=== PATIENT | female | born 1975 | race Caucasian/White ===

== ENCOUNTER → 2020-03-28 13:37 | Outpatient (CLI) | payer BC, SELFPAY | PROVIDERS: Visit Provider Family Medicine Hospice and Palliative Medicine | DX: Z11.59 Encounter for screening for other viral diseases (principal) | CPT/HCPCS: 87635; 94799; U0003 ==

== ENCOUNTER → 2023-07-23 | Outpatient (CLI) | payer OTHER, SELFPAY ==
--- NOTE | 2023-07-23 13:57 | VDLE_ITS ---
Reason For Study: Swelling LLE RIGHT LEFT CFV is compressible, spontaneous, phasic, GSV is normal. competent and demonstrates normal CFV is compressible, with CONTINUOUS FLOW, augmentation. competent, and demonstrates normal Procedure augmentation. This is a venous duplex using B-mode, color FV is compressible, with CONTINUOUS FLOW, flow and spectral Doppler. competent and demonstrates normal Exam performed in department. augmentation. A preliminary report was called and/or faxed POP V is compressible, with CONTINUOUS FLOW, to Marta COYLE. competent and demonstrates normal augmentation. T/P Trunk is compressible. PTV is compressible. LT PerV is compressible. VL/Venous Duplex US, Unilateral Interpretation Summary Deep veins of the left lower extremity are patent and compressible segmentally. There is no evidence of left lower extremity deep vein thrombosis. The left great saphenous vein becca ears patent and compressible segmentally. Continuous flow throughout suggesting central obstruction Ordering Physician: Radha Monroe Referring Physician: Cydney Quiroz Performed By: Sade Das, ELYSIA, RVT
== END | disposition home or self-care (01) ==
LOC: CVS 13:56
PROVIDERS: PCP Nurse Practitioner Family; Referring Provider Physician Assistant; Visit Provider Physician Assistant
DX: I82.409 Acute embolism and thrombosis of unspecified deep veins of unspecified lower extremity (principal)
CPT/HCPCS: 93971

== ENCOUNTER 2023-10-08 07:03 | Day surgery (SDC) | payer OTHER, SELFPAY ==
--- OUTSIDE RECORDS SUMMARY | 2023-10-08 07:09 | XMS RPT_ITS | CCD ---
Author Name Unknown Address [id number] [place] [address] Organization [facility] Care Team Providers Care Grades 9 Thru 12 Visiting Teacher Name Role Phone FELICIANO MCMAHAN BALER OPERATOR Admitting Unavailab le HOFSTETTER, FELICIANO BALER OPERATOR Primary Care Unavailab le HOFSTETTER, FELICIANO BALER OPERATOR Consulting Unavailab le HOFSTETTER, FELICIANO BALER OPERATOR Attending Unavailab le PROVIDER, UNKNOWN Consulting Unavailable PROVIDER, UNKNOWN Consulting Unavailable LETTYFSTETTER, FELICIANO BALER OPERATOR Admitting Unavailab le HOFSTETTER, FELICIANO BALER OPERATOR Primary Care Unavailab le HOFSTETTER, FELICIANO BALER OPERATOR Consulting Unavailab le HOFSTETTER, FELICIANO BALER OPERATOR Attending Unavailab le PROVIDER, UNKNOWN Consulting Unavailable PROVIDER, UNKNOWN Consulting Unavailable LETTYFSTETTER, FELICIANO BALER OPERATOR Admitting Unavailab le HOFSTETTER, FELICIANO BALER OPERATOR Primary Care Unavailab le HOFSTETTER, FELICIANO BALER OPERATOR Consulting Unavailab le HOFSTETTER, FELICIANO BALER OPERATOR Attending Unavailab le PROVIDER, UNKNOWN Consulting Unavailable PROVIDER, UNKNOWN Consulting Unavailable HOFSTETTER [employer]CFELICIANO Unavailable Elva SUE MD Unavailable [phone] VASCULAR SURGEON, GENERAL Unavailable Antonina HUDDLESTON MD, FELIZ Unavailable Angie Washburn Unavailable Unavailable VICTOR MANUEL KC, RAJWINDER Harding Unavailable JAMAL RAGLAND Unavailable Unavailable JOSEMANUEL HUDDLESTON Unavailable Unavailable FLAQUITO BAILEY-MARNI OWENS Unavailable Gerardo HUDDLESTON MD Unavailable AMELIA FU Unavailable Unavailable César, Isabel F Unavailable Unavailable NATE MCALLISTER Unavailable Unavailable Deven Jovita Unavailable Unavailable Katelin REYES, Alejandra Unavailable Unavailable Emma Westbrook Unavailable Unavailable BENJY GUAMAN Unavailable Unavailable Unavailable Unavailable ERLINDA HALL MD Unavailable Medications Current Medications Medication Drug Class(es) Dates Sig (Normalized) Sig (Original) apixaban 5 mg oral tablet (2 sources) Factor Xa Inhibitor Start: 08-06-2023 apixaban 5 mg tablet ; 1 (one) Tablet two times daily for 30 days Quantity: 60 {Tablet} Refills: 5 Ordered: 06-Aug-2023 JANEEN MCMAHAN Start: 06-Aug-2023 omeprazole 40 mg delayed release oral capsule (2 sources) Proton Pump Inhibitor Start: 06-04-2023 omeprazole 40 mg capsule,delayed release ; 1 (one) capsule daily for 30 days Quantity: 30 {Capsule} Refills: 3 Ordered: 02-Jul-2023 SERGIO Resendez Start: 04-Jun-2023 polymyxin b 57512 unt/ml / trimethoprim 1 mg/ml ophthalmic solution (1 source) Dihydrofolate Reductase Inhibitor Antibacterial, Polymyxin-class Antibacterial Start: 09-19-2023 take 1 mg into the eye(s) every three hours polymyxin B sulfate 10,000 unit-trimethopri m 1 mg/mL eye drops ; 1 (one) drop every 3 hours as directed for 7 days Quantity: 10 {Milliliter} Refills: 0 Ordered: 19-Sep-2023 MD ERLINDA HALL Start: 19-Sep-2023 Comments: Solution Completed/Discontinued Medications Medication Drug Class(es) Dates Sig (Normalized) Sig (Original) azithromycin 250 mg oral tablet (2 sources) Macrolide Antimicrobial Start: 10-23-2013 End: 10-28-2013 AZITHROMYCIN, 250MG (Oral Tablet) ; 2 x 1 then 1 x 4 Tablet daily for 5 days Quantity: 6 {Tablet} Refills: 0 Ordered: 28-Jan-2014 MD RAJWINDER RUSH Start: 23-Oct-2013 End: 28-Oct-2013 Status: Inactive Comments: take two tablets day one and then one tablet daily for 4 days Problems Active Problems Problem Classification Problem Date Documented Da te Episodic/Chronic Acute and chronic tonsillitis (2 sources) Tonsillitis; Translations: [Acute tonsillitis, unspecified] 10-24-2010 Episodic Acute bronchitis (4 sources) Acute bronchitis 07-09-2023 Episodic Administrative/social admission (6 sources) Patient encounter status; Translations: [Counseling, unspecified] 07-09-2023 Episodic Diabetes mellitus without complication (7 sources) Impaired fasting glucose; Translations: [Hyperglycemia] Onset: 3 07-09-2023 Episodic Diseases of white blood cells (9 sources) Lymphocytopenia; Translations: [Lymphocytopenia] Onset: 3 06-04-2023 Chronic Esophageal disorders (4 sources) Gastroesophageal reflux disease without esophagitis; Translations: [Gastro-esophageal reflux disease without esophagitis] 07-09-2023 Chronic Gastrointestinal hemorrhage (4 sources) Hemorrhage of rectum and anus 08-28-2013 Episodic Immunizations and screening for infectious disease (8 sources) Needs influenza immunization; Translations: [Encounter for immunization] 07-09-2023 Episodic Inflammation; infection of eye (except that caused by tuberculosis or sexually transmitteddisease) (2 sources) Acute infectious conjunctivitis; Translations: [Unspecified acute conjunctivitis, unspecified eye] 09-19-2023 Episodic Malaise and fatigue (4 sources) Fatigue; Translations: [Other fatigue] 07-09-2023 Episodic Nonmalignant breast conditions (4 sources) Mastodynia; Translations: [Mastodynia] 07-09-2023 Episodic Nonspecific chest pain (8 sources) Chest pain at rest; Translations: [Chest pain, unspecified] 06-04-2023 Episodic Nutritional deficiencies (9 sources) Vitamin D deficiency, unspecified; Translations: [Vitamin D deficiency] Onset: 3 06-04-2023 Chronic Other connective tissue disease (4 sources) Swelling of left lower limb; Translations: [Other specified soft tissue disorders] 07-09-2023 Episodic Other screening for suspected conditions (not mental disorders or infectious disease) (20 sources) Encounter for screening for lipoid disorders; Translations: [Patient encounter status] Onset: 3 Episodic Other upper respiratory infections (6 sources) Acute upper respiratory infection; Translations: [Acute upper respiratory infection, unspecified] 07-09-2023 Episodic Past or Other Problems Problem Classification Problem Date Documented Da te Episodic/Chronic Unclassified (2 sources) Follow up Tests results - Note for Follow up to discuss laboratory test results : Patient had stress test 06/19/2023 07-09-2023 Unclassified (2 sources) [ADDITIONAL REASON] DVT - Note for DVT : Patient found out 07/02/23 has DVT upper thigh area L leg 07-09-2023 Unclassified (2 sources) Leg pain - The leg pain has been occurring for 2 days. The course has been worsening. The leg pain is described as a dull aching (walking in upper leg there is a pain-pressure.). The leg pain involves the left leg. The leg pain is described as being located in the down the entire leg (swelling down the entire leg, worse from knee up.). There has been associated swelling in the leg. The pain is relieved by anti-inflammatory medication (and also used aspirin.). Note for Leg pain : Not going at night at all. Several years ago had a blood clot in a calve. 07-02-2023 Unclassified (2 sources) !Patient notification of lab results - JANEEN Helms. The test(s) that you had done were/was a heart stress test. The results of your testing were normal . You should call our office if you have any questions. Please follow up as scheduled. 06-19-2023 Unclassified (2 sources) !Patient notification of lab results - JANEEN Helms. The test(s) that you had done were/was a cologuard. The results of your testing were normal . You should call our office if you have any questions. Please follow up as scheduled. 06-16-2023 Unclassified (2 sources) Immunization - Immunizations discussed with patient/ parent: yes. Influenza immunization was given. An immunization information sheet was provided. 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 Pt has labs done last week. 06-09-2023 Unclassified (2 sources) !Patient notification of lab results - JANEEN Helms. The test(s) that you had done were/was blood work. The results of your testing were normal . You should call our office if you have any questions. Please follow up as scheduled. Note for !Patient notification of lab results : Vitamin D was very high at 91. Over 100 is considered toxic- consider a multivitamin with vitamin B and iron for supplementing for energy. Thanks! 06-03-2022 Unclassified (2 sources) Physical examination - The patient is here for a work ([facility]) physical. The patinet denies tobacco use.Her last menstrual period date was 05/15/2022. 05-31-2022 Unclassified (2 sources) OSHA N95 work questionaire - Brought a work questionnaire that has boxes marked. Would like to talk through with you.: Pt has done this screening the last -3 years. She feels that since than her nose feels swollen on the inside all the time. SOB is happening quicker in N95sm than it has since wearing them. Mask gets hotter quicker when on face 04-11-2022 Unclassified (2 sources) Skin lesion - Note for Skin lesion : Pt. has two lesions on her stomach that started 1 month ago. The lesions started small but have grown in size with a hard area in the center. 02-28-2022 Unclassified (2 sources) !Patient notification of lab results - Dr. Sue. The test(s) that you had done were/was blood work (Your thyroid was normal. The lymphocyte percentage was very slightly low. These are cells that help fight viral infections. They were not so low that I am concerned that you will have a problem with infection, but the count should be repeated in 6 months to be certain that it is stable.). You should call our office to schedule an appointment for additional testing and if you have any questions. 12-17-2021 Unclassified (2 sources) Chest pain - The onset of the chest pain has been acute and has been occurring in an intermittent pattern for minutes (15-20). The chest pain is described as being located in the left chest. There has been no associated dyspnea. Note for Chest pain : Pt felt some mild chest pain yesterday. She had just finished shopping at the grocery store when it started. She sat and took some deep breaths and it went away. She did have some tingling in her left arm from her elbow to her hand, but she has that feeling occasionally. She has not had any more symptoms. Thinks it might be stress related. 12-12-2021 Unclassified (1 source) Bee sting - pt was stung by a bee one week ago, has tried cream, salve, and baking soda paste. under the sting feels hard to the touch per pt and feels like the firmness under the skin is spreading 04-13-2021 Unclassified (1 source) [ADDITIONAL REASON] Edema - Symptoms include edema. The edema involves both lower extremities. Onset was 1 year(s) ago (Maybe longer, pt not sure.). Note for Edema : pitting edema in bilateral lower legs. 04-13-2021 Unclassified (2 sources) !Patient notification of lab results - Hall. The test(s) that you had done were/was a BMP (potassium, sodium, sugar, and kidney function) and a lipid panel (cholesterol and triglycerides). The results of your testing were normal . Please note that we have included copies of your results (you may use this for your wellness form). 08-29-2017 Unclassified (2 sources) cough - The cough has been occurring for 1 week. The course has been increasing. The cough is characterized as productive of mucoid sputum and productive of purulent sputum. The symptoms have been associated with chest pain and sore throat (earlier in the week), while the symptoms have not been associated with anorexia, dyspnea, fever, headache, hoarseness or runny nose. 10-23-2013 Unclassified (2 sources) !Patient notification of lab results 1 - Hall. The test(s) that you had done were/was a CBC (checks for anemia and infection), a CMP (kidneys, liver, nutrition, sugar), a lipid panel (cholesterol and triglycerides) and a TSH (thyroid). The results of your testing were normal . Please note that we have included copies of your results (get colonoscopy as scheduled). 08-30-2013 Unclassified (2 sources) Edema - Symptoms include edema. The edema involves both lower extremities. Onset was 8 month(s) ago. Note for Edema : Carbon dioxide issue in home in October.. 08-20-2013 Unclassified (2 sources) [ADDITIONAL REASON] Change in a mole - Note for Change in a mole : Check several moles. 08-20-2013 Unclassified (2 sources) cough - The onset of the cough has been sudden and has been occurring in a persistent pattern for 5 days. The cough is characterized as dry. The symptoms have been associated with headache and sore throat, while the symptoms have not been associated with edema. Note for cough : Pt feels congested and fatigued. 09-05-2012 Unclassified (2 sources) Sore throat - The sore throat has been occurring for 5 days. There has been associated left ear pain and nasal congestion (noticed white spots on L. side of throat). 10-24-2010 Unclassified (1 source) Eye Discharge - Note for Eye discharge : Pt scratched/poked her left eye while putting on mascara 2 days ago. The left eye is red, swollen, and crusted shut in the morning. Symptoms are getting better. 09-19-2023 Unclassified (1 source) Edema - Symptoms include edema. The edema involves both lower extremities. Onset was 1 year(s) ago (Maybe longer, pt not sure.). Note for Edema : pitting edema in bilateral lower legs. 04-13-2021 Unclassified (1 source) [ADDITIONAL REASON] Bee sting - pt was stung by a bee one week ago, has tried cream, salve, and baking soda paste. under the sting feels hard to the touch per pt and feels like the firmness under the skin is spreading 04-13-2021 Results Test Name Value Interpretation Reference Range Facil ity Vital Signs Date Time Vital Sign Value Performing Clinician Solomon jones 09-19-2023 09:31-0500 Body height 170.18 cm [facility]. 09-19-2023 09:31-0500 Body mass index (BMI) [Ratio] 34.3 kg/m2 Alejandra [facility].; [facility], [facility]. 09-19-2023 09:31-0500 Body surface area Derived from formula 2.1 m2 Alejandra Thomason RN [facility].; [facility], [facility]. 09-19-2023 09:31-0500 Body weight 99.34 kg Alejandra Thomason [facility]. 09-19-2023 09:31-0500 Diastolic blood pressure 85 mm[Hg] Alejandra Thomason [facility]; [facility] Encounters Encounter Date Encounter Type Care Provider Facility Start: 09-19-2023 End: 09-19-2023 Office outpatient visit 15 minutes FELICIANO MCMAHAN [employer] [facility] Start: 08-06-2023 End: 08-06-2023 Medication Refill/Order FELICIANO MCMAHAN [employer] [facility] Start: 07-09-2023 End: 07-09-2023 Office outpatient visit 15 minutes FELICIANO MCMAHAN [employer] [facility] Start: 07-03-2023 End: 07-03-2023 Historical Summary FELICIANO MCMAHAN [employer] [facility] Start: 07-02-2023 End: 07-02-2023 Medication Refill/Order FELICIAON MCMAHAN [employer] [facility] Start: 07-02-2023 End: 07-02-2023 Office outpatient visit 15 minutes FELICIANO MCMAHAN [employer] [facility] Start: 06-19-2023 End: 06-19-2023 Follow-up encounter FELICIANO MCMAHAN [employer] Work Phone: [facility] Start: 06-19-2023 End: 06-19-2023 ambulatory FELICIANO MCMAHAN [facility] Start: 06-16-2023 End: 06-16-2023 Follow-up encounter FELICIANO HOFSTETTER [employer] [facility] Start: 06-04-2023 End: 06-04-2023 Patient encounter procedure FELICIANO MCMAHAN [employer] [facility]; [facility] Start: 06-04-2023 End: 06-04-2023 Periodic preventive med est patient 40-64yrs FELICIANO DAUGHERTYJENNIFER [employer] Work Phone: [facility]. Start: 05-30-2023 End: 05-30-2023 ambulatory FELICIANO BALER OPERATOR [facility] Start: 05-30-2023 End: 05-30-2023 Lab Only FELICIANO HANDLEYAARON [employer] Work Phone: [facility]. Start: 04-04-2023 End: 04-04-2023 ambulatory FELICIANO BALER OPERATOR [facility] Start: 03-19-2023 End: 03-19-2023 Procedure Order FELICIANO MCMAHAN [employer] [facility] Start: 08-19-2022 End: 08-19-2022 Historical Summary FELICIANO LETTYGUALBERTOJENNIFER [employer]C Work Phone: [facility] Start: 06-03-2022 End: 06-03-2022 Follow-up encounter FELICIANO MCMAHAN [employer] Work Phone: [facility] [employer] Start: 05-30-2022 End: 05-30-2022 Lab Only FELICIANO MCMAHAN [employer] Work Phone: [facility] Start: 05-30-2022 End: 05-30-2022 Patient encounter procedure FELICIANO MCMAHAN [employer] Work Phone: [facility]; [facility] [employer] Start: 05-30-2022 End: 05-30-2022 Periodic preventive med est patient 40-64yrs FELICIANO MCMAHAN [employer] Work Phone: [facility]. Start: 04-11-2022 End: 04-11-2022 Office outpatient visit 15 minutes FELICIANO MCMAHAN [employer] Work Phone: [facility] [employer] Start: 02-28-2022 End: 02-28-2022 Office outpatient visit 15 minutes FELICIANO HANDLEYER [employer] Work Phone: [facility] [employer] Start: 12-14-2021 End: 12-14-2021 Patient encounter procedure EFLICIANO HANDLEYER [employer] Work Phone: [facility] [employer] Start: 12-12-2021 End: 12-12-2021 Office outpatient visit 15 minutes FELICIANO HANDLEYER [employer] Work Phone: [facility] Start: 04-13-2021 End: 04-13-2021 Office outpatient visit 15 minutes FELICIANO MCMAHAN [employer] Work Phone: [facility] [employer] Start: 08-17-2019 End: 08-17-2019 Historical Summary FELICIANO HANDLEYER [employer] [facility] Start: 08-20-2018 End: 08-20-2018 Lab Only FELICIANO HANDLEYER [employer] Work Phone: [facility] [employer] [facility] [employer] Start: 09-23-2017 End: 09-30-2017 Office outpatient visit 15 minutes FELICIANO HANDLEYER [employer] [facility]. Start: 08-29-2017 End: 08-29-2017 Results Review FELICIANO MCMAHAN [employer] [facility]. Start: 08-29-2017 End: 08-29-2017 Lab Only FELICIANO MCMAHAN [employer] Work Phone: [facility]. Start: 12-30-2014 End: 12-30-2014 Results Review FELICIANO MCMAHAN [employer] Work Phone: [facility]. Start: 12-30-2014 End: 12-30-2014 Historical Summary FELICIANO MCMAHAN [employer] Work Phone: [facility]. Start: 10-23-2013 End: 10-23-2013 Patient encounter procedure FELICIANO MCMAHAN [employer] [facility]. Start: 08-30-2013 End: 08-30-2013 Nutrition therapy FELICIANO MCMAHAN [employer] Work Phone: [facility]. Start: 08-28-2013 End: 08-28-2013 Lab Only FELICIANO MCMAHAN [employer] Work Phone: [facility]. Start: 08-20-2013 End: 08-20-2013 Historical Summary FELICIANO MCMAHAN [employer] Work Phone: [facility]. Start: 08-20-2013 End: 08-20-2013 Patient encounter procedure FELICIANO MCMAHAN [employer] Work Phone: [facility]. Start: 09-05-2012 End: 09-05-2012 Patient encounter procedure FELICIANO MCMAHAN [employer] [facility] Start: 10-24-2010 End: 10-24-2010 Patient encounter procedure FELICIANO MCMAHAN [employer] [facility] Patient encounter procedure FELICIANO MCMAHAN [employer]C Work Phone: [facility]; [facility] Procedures Date Procedure Procedure Detail Performing Clinician Start: 09-19-2023 End: 09-19-2023 Dischrg meds reconciled w/current med list ERLINDA HALL MD Work Phone: Start: 07-09-2023 End: 07-09-2023 Dischrg meds reconciled w/current med list FELICIANO MCMAHAN [employer] Work Phone: Start: 07-09-2023 End: 07-09-2023 No Known Past Surgical History FELICIANO MCMAHAN [employer] Work Phone: Start: 07-03-2023 End: 07-03-2023 Dup-scan xtr veins unilateral/limited study MARNI HUDDLESTON [employer]- Work Phone: Plan of Treatment Date Care Activity Detail Author Start: 05-30-2022 Hemoglobin glycosyla selvin a1c HGB A1C (63752) Start: 30-May-2022 11:55 Request [facility] [employer] [facility]; [facility] Start: 04-13-2021 Patient Education [facility]; [facility] Start: 10-23-2013 Patient Education BRONCHITIS, ACUTE Indication: BRONCHITIS, ACUTE Start: 23-Oct-2013 Instruction Type: Patient Education [employer] [facility]; [employer] [facility] Immunizations Immunization Date Immunization Notes Care Provider Fa veronica 06-04-2023 influenza virus vaccine, unspecified formulation FELICIANO SAENZSHAUN [employer] Work Phone: [facility]; [facility] Payers Date Payer Category Payer Unknown [id number] 1975 Unknown [id number] 1975 Unknown [id number] Private Health Insurance [id number] Unknown [facility] Social [facility] Date Type Detail Facility Alcohol Use: Alcohol Use: ; N o Alcohol Use. [facility] Current Work/Study Status: Bernarda eckert Work/Study Status: ; Full-time. [facility] Most Recent Primary Occupation Most Recent Primary Occupation [facility]; [facility] Tobacco use: Tobacco use: ; N ever smoker. [facility]. Female [facility].; [facility]. Work Phone: Full-time [facility] [facility].; [facility]. Work Phone: Never smoked tobacco [facility].; [facility] Work Phone: Summary Purpose Family History Father Status:Active Comments:In good health. Born [birth year] DM; mini stroke in 70s. Mother Status:Active Comments:In good health. Born 1951 HTN; back issues Sister (s) Status:Active Comments:2. In g ood health. Father Status:Active Comments:In good health. Born [birth year] DM; mini stroke in 70s. Mother Status:Active Comments:In good health. Born 1952 HTN; back issues Sister (s) Status:Active Comments:2. In g ood health. Advance Directives No Advanced Directives Records FoundNo Advanced Directives Records Found Additional Source Comments INFORMATION SOURCE (unrecogn ized section and content) DATE CREATED AUTHOR AUTHOR'S TONYA NELSON 06/20/2023 [facility] FOR RECORDS PERTAINING TO PATIENTS WHO ARE OR HAVE BEEN ENROLLED IN A CHEMICAL DEPENDENCY/SUBSTANCEABUSE PROGRAM, SOME INFORMATION MAY BE OMITTED. This clinical summary was aggregated from multiple sources. Caution should be exercised in using it in the provision of clinical care. This summary normalizes information from multiple sources, and as a consequence, information in this document may materially change the coding, format and clinical context of patient data. In addition, data may be omitted in some cases. CLINICAL DECISIONS SHOULD BE BASED ON THE PRIMARY CLINICAL RECORDS. [employer] provides no warranty or guarantee of the accuracy or completeness of information in this document.
[2023-10-08 07:20] LABS: Absolute Lymphocyte Count 1.47 X10^3/uL (0.83-4.51); Absolute Neutrophil Count 4.9 X10^3/uL (2.0-7.7); Basophil# 0.05 X10^3/uL; Basophil% 0.7 % (0-1); Eosinophil# 0.15 X10^3/uL; Eosinophils% 2.1 % (0-5); Hematocrit 34.7 % (37-47); Hemoglobin 10.8 g/dL (12.0-15.0); Lymphocyte # 1.47 X10^3/ul (0.83-4.51); Lymphocyte % 20.7 % (19-41); Mean Corp Hgb Conc 31.1 g/dL (32-36); Mean Corpuscular Hgb 26.4 pg (27.0-32.0); Mean Corpuscular Volume 84.8 fL (81-99); NRBC Flagged by Analyzer 0 % (0-5); Neutrophil # 4.92 X10^3/uL (2.7-7.7); Neutrophil % 69.2 % (47-70); Platelet Count 237 K/mm3 (150-450); RBC Distribution Width SD 46.2 fl (35.1-43.9); Red Blood Count 4.09 M/mm3 (4.2-5.4); White Blood Count 7.1 K/mm3 (4.4-11.0)
[2023-10-08 07:27] VITALS: BMI 34.1
[2023-10-08 07:47] LABS: Internal QC Validated? YES +Cl - CLEAR BKGD; Pregnancy, Serum, hCG Quali. NEGATIVE Negative
[2023-10-08 07:53] LABS: Anion Gap 2 (5-15); BUN 19 mg/dL (7-18); Chloride 108 mmol/L (98-107); EST Glomerular Filtration Rate 70 mL/min (>60); Est Glom Filt Rate - Afr Amer 85 mL/min (>60); Estimated Creatinine Clearance 91.33 ml/min; Glucose 100 mg/dL (74-106); Potassium 4.1 mmol/L (3.5-5.1); Sodium Level 137 mmol/L (136-145)
--- NOTE | 2023-10-08 07:59 | PCM.HP.STD ---
HPI - General HPI Narrative RORY PA, is a 48 F who presents with prior unprovoked DVT and chronic edema with abnormal venous flow suggesting more proximal obstruction. Left leg edema continues to vary, slightly worse over past week or so. [facility]LY [facility] Medical History Fatigue Gastroesophageal reflux Hx of deep venous thrombosis (~2022) Hx of edema Intermittent chest pain Home Medications apixaban 5 mg tablet 5 mg PO BID 07/15/23 [History Last Taken 10/06/23] cholecalciferol (vitamin D3) 50 mcg (2,000 unit) tablet 50 mcg PO DAILY 07/15/23 [History Last Taken Unknown] omeprazole 40 mg capsule,delayed release 40 mg PO DAILY 07/15/23 [History Last Taken Unknown] turmeric 100 mg-yared 150 mg-olive 50 mg-oreg 150 mg-capryl capsule cap PO 07/15/23 [History Last Taken Unknown] Allergy/AdvReac Type Severity Reaction Status Date / Time No Known Allergies Allergy Verified 08/21/23 15:22 Family History Other Asthma Breast cancer CVA (cerebral vascular accident) Cancer Diabetes Hypertension Social History Smoking Status: Never smoker alcohol intake: never ROS Constitutional Constitutional: Denies chills, fever(s), frequent falls, lethargy or weakness Eyes Eyes: Denies blind spots, change in vision or loss of vision ENT HEENT: Denies bleeding gums, hoarseness or sore throat Cardiovascular Cardiovascular: Denies abdominal pain, bluish discoloration of hand/feet, chest pain with activity, claudication, cold extremities, cyanosis, dyspnea on exertion, erythema on extremities, irregular heart rhythm, leg edema, leg ulcers, numbness in extremities or weakness in extremities Respiratory/Chest Respiratory/Chest: Denies cough, excessive phlegm production, shortness of breath at rest, shortness of breath with exertion or wheezing Gastrointestinal Gastrointestinal: Denies anorexia, change in stool character, constipation, diarrhea, melena or rectal bleeding Genitourinary Genitourinary: Denies dysuria or hematuria Musculoskeletal Musculoskeletal: Denies abnormal gait Integumentary Integumentary: Reports other Details: ; Denies erythema, non-healing lesions or wounds Neurologic Neurologic: Denies abnormal speech, focal weakness, headache(s), loss of vision, numbness, paresthesias or sensory deficit Hematologic/Lymphatic Hematologic/Lymphatic: Denies easy bleeding, easy bruising or lymphadenopathy Vital Signs Vital Signs Vital Signs: Weight Weight: 218 lb Body Mass Index (BMI) 34.1 Physical Exam Const alert, oriented x3, no apparent distress and healthy appearing General Appearance: cooperative; Negative for combative or lethargic Orientation / Consciousness: awake Exam Limitations: no limitations HEENT Head and Scalp: normocephalic and atraumatic Eyes EOMs intact bilaterally General Eye: normal appearance of both eyes Neck full ROM, no lymphadenopathy, thyroid normal and No no carotid bruits General: trachea midline; Negative for lymphadenopathy or tenderness Thyroid: thyroid normal Lymph Lymphatic: Negative for no lymphadenopathy noted Resp normal respiratory effort, no use of accessory muscles and clear to auscultation bilaterally Effort and Inspection: Negative for labored, stridor or audible wheezes Cardio regular rate, regular rhythm and no murmurs Peripheral Pulses: brachial pulses present, radial pulses present, femoral pulses present, popliteal pulses present, posterior tibial pulses present and dorsalis pedis pulses present Back/Spine Cervical Spine: cervical ROM normal Extremity full ROM, normal capillary refill and no clubbing, cyanosis or edema Skin no rashes or lesions noted and no wounds Neuro oriented x3, CN's II-XII intact bilaterally, no focal motor deficits and no sensory deficits noted Psych thought process normal, cooperative, affect normal, speech normal and activity/motor behavior normal Results Lab / Micro Data 10/08/23 07:07 10/08/23 07:07 Labs: Laboratory Results - last 24 hr 10/08/23 07:07: WBC 7.1, RBC 4.09 L, Hgb 10.8 L, Hct 34.7 L, MCV 84.8, MCH 26.4 L, MCHC 31.1 L, RDW Std Deviation 46.2 H, RDW Coeff of Familia 15.0 H, Plt Count 237, MPV 11.0, Immature Gran % (Auto) 0.300, Neut % (Auto) 69.2, Lymph % (Auto) 20.7, Mckean % (Auto) 7.0, Eos % (Auto) 2.1, Baso % (Auto) 0.7, Absolute Neuts (auto) 4.9, Absolute Lymphs (auto) 1.47, Nucleated RBC % 0, Sodium 137, Potassium 4.1, Chloride 108 H, Carbon Dioxide 27.0, Anion Gap 2 L, BUN 19 H, Creatinine 0.90, Estim Creat Clear Calc 91.33, Est GFR (MDRD) Af Amer 85, Est GFR (MDRD) Non-Af 70, BUN/Creatinine Ratio 21.0 H, Glucose 100, Calcium 9.0, Serum , Qual NEGATIVE Assessment & Plan Assessment/Plan (1) Acute deep vein thrombosis: QUALIFIERS: DVT location: lower extremity Affected thrombotic vein of extremity: femoral Laterality: left Qualified Code(s): I82.412 - Acute embolism and thrombosis of left femoral vein PLAN: -plan venogram
--- NOTE | 2023-10-08 10:09 | OP.PCM_ITS ---
Report of Operation Date of Procedure: 10/08/23 Pre-Operative Diagnosis: DVT Post-Operative Diagnosis: same, left common iliac vein compression/occlusion Surgery/Procedure Performed:: Venogram IVC IVUS IVC, bilateral common/external iliac veins angioplasty/stent left common iliac vein Description of Surgical Findings:: HPI: Patient is a 48-year-old female with unprovoked left lower extremity DVT. She has been treated with anticoagulation with resolution of her thrombus however she continues to have significant left-sided tightness and swelling. Given the persistent symptoms, the location of the thrombus in the more proximal vessels, and the unprovoked nature she is taken now for venogram to search for possible central compression. Description of procedure: Upon obtaining form consent and verification correct patient procedure site patient was taken to the [facility] where she was positioned prepped and draped in usual sterile fashion. Time was performed and conscious sedation administered Versed and fentanyl. Skin overlying the left common femoral vein was Nestabs 1% lidocaine the vessel accessed under ultrasound guidance with a micropuncture needle wire. This then exchanged for micropuncture sheath through which injection ilio caval venogram was performed revealing significant pelvic collaterals cross-filling into the contralateral side and abrupt near occlusion of the mid common iliac vein with multiple adjacent collaterals. Through the micropuncture sheath a stiff glide wire was advanced and the micropuncture sheath exchanged out for a 10 [place] Islander sheath. Next skin overlying the right common femoral vein was anesthetized 1% lidocaine and the vessel accessed under ultrasound guidance with micropuncture needle wire. This then exchanged for micropuncture sheath through which injection ilio caval venogram was performed revealing brisk contrast transit with no significant obstruction or collateral formation. Bentson wire was then advanced via the sheath and the micropuncture sheath was then exchanged out for a 10 [place] Islander sheath. Using the stiff glide and a angled quick cross catheter we were able to navigate into the channel that was maintained emptying the iliac vein into the vena cava. We are to traverse this segment and advance her wire catheter into the vena cava at which point to the wire was withdrawn hand- injection venacavogram through the catheter was performed revealing satisfactory position within the true lumen of the vena cava. Patient was then heparinized to circulate for 3 minutes after which the intravascular shunt probe was then advanced over the Glidewire and recorded pullback of the IVC, left common iliac vein, left external and vein was performed. This confirmed what appeared to be significant compression of the mid common iliac vein however is very difficult to determine if we were within compressed and partially occluded iliac vein or if we are in one of the abundant collaterals. We then withdrew the ultrasound probe advanced via the right femoral access sheath and recorded pullback of the IVC, right common iliac vein, right external venous performed. This revealed that there was no significant compression or obstruction of the right iliac vein system. This also appeared to show that the wire from the left femoral access sheath did enter the vena cava at the appropriate position to be consistent with the common iliac vein. With continued uncertainty of the nature of the conduit that we crossed into the vena cava was felt that the small caliber balloon angioplasty with sequential increase in size of balloon would help determine if we were within collateral branch or true lumen of the vessel. First a Bard noncompliant 6 x 40 balloon was advanced in position and inflated to nominal for 2 minutes then deflated withdrawn. There is no significant discomfort for the patient and repeat venography revealed what appeared to be improved lumen channel with no extravasation dissection. Next a 8 x 40 balloon was advanced into position and again inflated nominal for 2 minutes and deflated withdrawn. He had repeat venography revealed satisfactory vessel response with no extravasation or dissection. Next a 10 x 40 balloon was advanced in the position and inflated to nominal and then deflated and withdrawn. Venography confirmed satisfactory vessel response. The intravascular shunt probe was then readvanced and recorded pullback performed which showed a more clear picture that we were within the lumen of the iliac vein there was significant webbing and scar within the vein. Finally the vessel was angioplastied with a 14 x 40 angioplasty balloon inflated to nominal and then deflated and withdrawn. Intravascular shunt probe was advanced in position to obtain length required to cover. Next a Bard Venovo 16 x 100 venous stent was advanced into position with adequate coverage of the proximal compression without significant extension into the vena cava or contralateral ostia. This was then deployed and then postdilated with the 14 x 40 angioplasty balloon. Repeat venography revealed brisk contrast transit with no extravasation dissection with overall satisfactory luminal gain. Intravascular shunt probe was then advanced and recorded pullback performed which revealed there was some poor stent to wall apposition at the superior aspect so a 16 x 40 angioplasty balloon was then advanced in position and reinflated to nominal for 2 minutes then deflated withdrawn. Ultrasound reevaluation confirmed better stent expansion with good wall apposition. There is no further contralateral iliac system filling via collaterals and there is brisk contrast transit across the stented segment. Silk suture was then placed at the femoral access sites and the wires and sheath withdrawn followed by 5 minutes of manual pressure. Afterwards patient was taken recovery room for bedrest prior to discharge to home. Surgeon: Adonay Kaplan Type of Anesthesia: Local and Sedation,Conscious Estimated Blood Loss (mL): 3 Grafts/Implants Used: Bard Venovo [id number]
[2023-10-08 20:50] LABS: ACT Activated Clotting Time 223 sec (74-137)
[2023-11-07 16:26] LABS: ACT Activated Clotting Time 223 sec (74-137)
== END 2023-10-08 12:15 | disposition home or self-care (01) ==
PROVIDERS: PCP Nurse Practitioner Family; Visit Provider Surgery Trauma Surgery
DX: I82.412 Acute embolism and thrombosis of left femoral vein (principal); I82.422 Acute embolism and thrombosis of left iliac vein; I87.1 Compression of vein; Z79.01 Long term (current) use of anticoagulants
CPT/HCPCS: 36010; 36415; 37238; 37252; 37253; 75825; 76937; 80048; 84703; 85025; 85347; 99152; 99153; C1725; C1753; C1769; C1887; C1894; Q9967; C1876

== ENCOUNTER → 2023-10-15 | Outpatient (CLI) | payer OTHER, SELFPAY ==
[2023-10-15 14:34] LABS: Hemoglobin 10.5 g/dL (12.0-15.0)
--- OUTSIDE RECORDS SUMMARY | 2023-10-15 17:57 | XMS RPT_ITS | CCD ---
Author Name Unknown Address [address] [place] [address] Organization [facility] Care Team Providers Care Patient Financial Rep Name Role Phone FELICIANO MCMAHAN CEO NA Admitting Unavailab le HOFSTETTER, FELICIANO CEO NA Primary Care Unavailab le HOFSTETTER, FELICIANO CEO NA Consulting Unavailab le HOFSTETTER, FELICIANO CEO NA Attending Unavailab le PROVIDER, UNKNOWN Consulting Unavailable PROVIDER, UNKNOWN Consulting Unavailable LETTYFSTETTER, FELICIANO CEO NA Admitting Unavailab le HOFSTETTER, FELICIANO CEO NA Primary Care Unavailab le HOFSTETTER, FELICIANO CEO NA Consulting Unavailab le HOFSTETTER, FELICIANO CEO NA Attending Unavailab le PROVIDER, UNKNOWN Consulting Unavailable PROVIDER, UNKNOWN Consulting Unavailable LETTYFSTETTER, FELICIANO CEO NA Admitting Unavailab le HOFSTETTER, FELICIANO CEO NA Primary Care Unavailab le HOFSTETTER, FELICIANO CEO NA Consulting Unavailab le HOFSTETTER, FELICIANO CEO NA Attending Unavailab le PROVIDER, UNKNOWN Consulting Unavailable PROVIDER, UNKNOWN Consulting Unavailable HOFSTETTER PICKLER HELPER-CFELICIANO Unavailable [phone] Elva SUE MD Unavailable VASCULAR SURGEON, GENERAL Unavailable Antonina HUDDLESTON MD, FELIZ Unavailable Angie Washburn Unavailable Unavailable RAJWINDER RUSH MD Unavailable JAMAL RAGLAND Unavailable Unavailable JOSEMANUEL HUDDLESTON Unavailable Unavailable FLAQUITO BAILEY-MARNI OWENS Unavailable Gerardo HUDDLESTON MD Unavailable AMELIA FU Unavailable Unavailable César, Isabel F Unavailable Unavailable NATE MCALLISTER Unavailable Unavailable Jovita Carvalho Unavailable Unavailable Katelin REYES, Alejandra Unavailable Unavailable Emma Westbrook Unavailable Unavailable BENJY GUAMAN Unavailable Unavailable Unavailable Unavailable RAFAEL KC, ERLINDA [place] Unavailable Medications Current Medications Medication Drug Class(es) Dates Sig (Normalized) Sig (Original) apixaban 5 mg oral tablet (4 sources) Factor Xa Inhibitor Start: 08-06-2023 apixaban 5 mg tablet ; 1 (one) Tablet two times daily for 30 days Quantity: 60 {Tablet} Refills: 5 Ordered: 06-Aug-2023 JANEEN MCMAHAN Start: 06-Aug-2023 omeprazole 40 mg delayed release oral capsule (4 sources) Proton Pump Inhibitor Start: 06-04-2023 omeprazole 40 mg capsule,delayed release ; 1 (one) capsule daily for 30 days Quantity: 30 {Capsule} Refills: 3 Ordered: 02-Jul-2023 SERGIO Resendez Start: 04-Jun-2023 Completed/Discontinued Medications Medication Drug Class(es) Dates Sig (Normalized) Sig (Original) azithromycin 250 mg oral tablet (4 sources) Macrolide Antimicrobial Start: 10-23-2013 End: 10-28-2013 [...] Da te Episodic/Chronic Acute and chronic tonsillitis (4 sources) Tonsillitis; Translations: [Acute tonsillitis, unspecified] 10-24-2010 Episodic Acute bronchitis (8 sources) Acute bronchitis 07-09-2023 Episodic Administrative/social admission (12 sources) Patient encounter status; Translations: [Counseling, unspecified] 07-09-2023 Episodic Diabetes mellitus without complication (13 sources) Impaired fasting glucose; Translations: [Hyperglycemia] Onset: 3 07-09-2023 Episodic Diseases of white blood cells (17 sources) Lymphocytopenia; Translations: [Lymphocytopenia] Onset: 3 06-04-2023 Chronic Esophageal disorders (8 sources) Gastroesophageal reflux disease without esophagitis; Translations: [Gastro-esophageal reflux disease without esophagitis] 07-09-2023 Chronic Gastrointestinal hemorrhage (8 sources) Hemorrhage of rectum and anus 08-28-2013 Episodic Immunizations and screening for infectious disease (16 sources) Needs influenza immunization; Translations: [Encounter for immunization] 07-09-2023 Episodic Inflammation; infection of eye (except that caused by tuberculosis or sexually transmitteddisease) (6 sources) Acute infectious conjunctivitis; Translations: [Unspecified acute conjunctivitis, unspecified eye] 09-19-2023 Episodic Malaise and fatigue (8 sources) Fatigue; Translations: [Other fatigue] 07-09-2023 Episodic Nonmalignant breast conditions (8 sources) Mastodynia; Translations: [Mastodynia] 07-09-2023 Episodic Nonspecific chest pain (16 sources) Chest pain at rest; Translations: [Chest pain, unspecified] 06-04-2023 Episodic Nutritional deficiencies (17 sources) Vitamin D deficiency, unspecified; Translations: [Vitamin D deficiency] Onset: 3 06-04-2023 Chronic Other connective tissue disease (8 sources) Swelling of left lower limb; Translations: [Other specified soft tissue disorders] 07-09-2023 Episodic Other screening for suspected conditions (not mental disorders or infectious disease) (20 sources) Encounter for screening for lipoid disorders; Translations: [Patient encounter status] Onset: Episodic Other upper respiratory infections (12 sources) Acute upper respiratory infection; Translations: [Acute upper respiratory infection, unspecified] 07-09-2023 Episodic Past or Other Problems Problem Classification Problem Date Documented Da te Episodic/Chronic Unclassified (3 sources) Follow up Tests results - Note for Follow up to discuss laboratory test results : Patient had stress test 06/19/2023 07-09-2023 Unclassified (3 sources) [ADDITIONAL REASON] DVT - Note for DVT : Patient found out 07/02/23 has DVT upper thigh area L leg 07-09-2023 Unclassified (4 sources) Leg pain - The leg pain [...] blood clot in a calve. 07-02-2023 Unclassified (4 sources) !Patient notification of lab results - JANEEN Helms. The test(s) that you had done were/was a heart stress test. The results of your testing were normal . You should call our office if you have any questions. Please follow up as scheduled. 06-19-2023 Unclassified (4 sources) !Patient notification of lab results - JANEEN Helms. The test(s) that you had done were/was a cologuard. The results of your testing were normal . You should call our office if you have any questions. Please follow up as scheduled. 06-16-2023 Unclassified (3 sources) Immunization - Immunizations discussed with patient/ parent: yes. Influenza immunization was given. An immunization information sheet was provided. 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 Pt has labs done last week. 06-09-2023 Unclassified (4 sources) !Patient notification of lab results - [...] for supplementing for energy. Thanks! 06-03-2022 Unclassified (4 sources) Physical examination - The patient is here for a work ([facility]) physical. The patinet denies tobacco use.Her last menstrual period date was 05/15/2022. 05-31-2022 Unclassified (4 sources) OSHA N95 work questionaire - Brought [...] hotter quicker when on face 04-11-2022 Unclassified (4 sources) Skin lesion - Note for Skin lesion : Pt. has two lesions on her stomach that started 1 month ago. The lesions started small but have grown in size with a hard area in the center. 02-28-2022 Unclassified (4 sources) !Patient notification of lab results - [...] if you have any questions. 12-17-2021 Unclassified (4 sources) Chest pain - The onset of [...] it might be stress related. 12-12-2021 Unclassified (2 sources) Bee sting - pt was stung by a bee one week ago, has tried cream, salve, and baking soda paste. under the sting feels hard to the touch per pt and feels like the firmness under the skin is spreading 04-13-2021 Unclassified (2 sources) [ADDITIONAL REASON] Edema - Symptoms include edema. The edema involves both lower extremities. Onset was 1 year(s) ago (Maybe longer, pt not sure.). Note for Edema : pitting edema in bilateral lower legs. 04-13-2021 Unclassified (4 sources) !Patient notification of lab results - Hall. The test(s) that you had done were/was a BMP (potassium, sodium, sugar, and kidney function) and a lipid panel (cholesterol and triglycerides). The results of your testing were normal . Please note that we have included copies of your results (you may use this for your wellness form). 08-29-2017 Unclassified (4 sources) cough - The cough has been occurring for 1 week. The course has been increasing. The cough is characterized as productive of mucoid sputum and productive of purulent sputum. The symptoms have been associated with chest pain and sore throat (earlier in the week), while the symptoms have not been associated with anorexia, dyspnea, fever, headache, hoarseness or runny nose. 10-23-2013 Unclassified (4 sources) !Patient notification of lab results 1 - Hall. The test(s) that you had done were/was a CBC (checks for anemia and infection), a CMP (kidneys, liver, nutrition, sugar), a lipid panel (cholesterol and triglycerides) and a TSH (thyroid). The results of your testing were normal . Please note that we have included copies of your results (get colonoscopy as scheduled). 08-30-2013 Unclassified (4 sources) Edema - Symptoms include edema. The edema involves both lower extremities. Onset was 8 month(s) ago. Note for Edema : Carbon dioxide issue in home in October.. 08-20-2013 Unclassified (4 sources) [ADDITIONAL REASON] Change in a mole - Note for Change in a mole : Check several moles. 08-20-2013 Unclassified (4 sources) cough - The onset of the cough has been sudden and has been occurring in a persistent pattern for 5 days. The cough is characterized as dry. The symptoms have been associated with headache and sore throat, while the symptoms have not been associated with edema. Note for cough : Pt feels congested and fatigued. 09-05-2012 Unclassified (4 sources) Sore throat - The sore throat has been occurring for 5 days. There has been associated left ear pain and nasal congestion (noticed white spots on L. side of throat). 10-24-2010 Unclassified (3 sources) Eye Discharge - Note for Eye discharge : Pt scratched/poked her left eye while putting on mascara 2 days ago. The left eye is red, swollen, and crusted shut in the morning. Symptoms are getting better. 09-19-2023 Unclassified (2 sources) Edema - Symptoms include edema. The edema involves both lower extremities. Onset was 1 year(s) ago (Maybe longer, pt not sure.). Note for Edema : pitting edema in bilateral lower legs. 04-13-2021 Unclassified (2 sources) [ADDITIONAL REASON] Bee sting - pt was stung by a bee one week ago, has tried cream, salve, and baking soda paste. 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 Pt has labs done last week. 06-09-2023 Unclassified (1 source) [ADDITIONAL REASON] Immunization - Immunizations discussed with patient/ parent: yes. Influenza immunization was given. An immunization information sheet was provided. 06-09-2023 Results Test Name Value Interpretation Reference Range Facil ity Vital Signs Date Time Vital Sign Value Performing Clinician Faci lity 09-19-2023 09:31-0500 Body height 170.18 cm Alejandra Thomason RN [facility], [facility].; [facility]. 09-19-2023 09:31-0500 Body mass index (BMI) [Ratio] 34.3 kg/m2 Alejandra Thomason RN [facility]. 09-19-2023 09:31-0500 Body surface area Derived from formula 2.1 m2 Alejandra Thomason RN [facility], [facility].; [facility]. 09-19-2023 09:31-0500 Body weight 99.34 kg Alejandra Thomason RN [facility], [facility].; [facility] 09-19-2023 09:31-0500 Diastolic blood pressure 85 mm[Hg] Alejandra Thomason RN [facility] Encounters Encounter Date Encounter Type Care Provider Facility Start: 09-19-2023 End: 09-19-2023 Office outpatient visit 15 minutes FELICIANO MCMAHAN PICKLER HELPER-C Work Phone: [facility] Start: 08-06-2023 End: 08-06-2023 Medication Refill/Order FELICIANO MCMAHAN PICKLER HELPER-C Work Phone: [facility], [facility] Start: 07-09-2023 End: 07-09-2023 Office outpatient visit 15 minutes FELICIANO MCMAHAN PICKLER HELPER-C [facility] Start: 07-03-2023 End: 07-03-2023 Historical Summary FELICIANO MCMAHAN PICKLER HELPER-C [facility] Start: 07-02-2023 End: 07-02-2023 Medication Refill/Order FELICIANO MCMAHAN PICKLER HELPER-C [facility] Start: 07-02-2023 End: 07-02-2023 Office outpatient visit 15 minutes FELICIANO MCMAHAN PICKLER HELPER-C [facility] Start: 06-19-2023 End: 06-19-2023 Follow-up encounter FELICIANO MCMAHAN PICKLER HELPER-C Work Phone: [facility] Start: 06-19-2023 End: 06-19-2023 ambulatory FELICIANO MCMAHAN [facility] Start: 06-16-2023 End: 06-16-2023 Follow-up encounter FELICIANO MCMAHAN PICKLER HELPER-C Work Phone: [employer] [place] [employer] Start: 06-04-2023 End: 06-04-2023 Patient encounter procedure FELICIANO MCMAHNA PICKLER HELPER-C Work Phone: [employer]; [employer] Start: 06-04-2023 End: 06-04-2023 Periodic preventive med est patient 40-64yrs FELICIANO DAUGHERTYJENNIFER PICKLER HELPER-C Work Phone: [facility] [employer] [facility] [employer] Start: 05-30-2023 End: 05-30-2023 ambulatory FELICIANO JESSICA [facility] Start: 05-30-2023 End: 05-30-2023 Lab Only FELICIANO MCMAHAN PICKLER HELPER-C Work Phone: [employer] [place] [employer] Start: 04-04-2023 End: 04-04-2023 ambulatory FELICIANO JESSICA [facility] Start: 03-19-2023 End: 03-19-2023 Procedure Order FELICIANO MCMAHAN PICKLER HELPER-C Work Phone: [employer] [place] [employer] Start: 08-19-2022 End: 08-19-2022 Historical Summary FELICIANO MCMAHAN PICKLER HELPER-C Work Phone: [facility] [employer] Start: 06-03-2022 End: 06-03-2022 Follow-up encounter FELICIANO MCMAHAN PICKLER HELPER-C Work Phone: [employer] Start: 05-30-2022 End: 05-30-2022 Lab Only FELICIANO FLOWERCRAIGJENNIFER PICKLER HELPER-C Work Phone: [employer] [place] [employer] Start: 05-30-2022 End: 05-30-2022 Patient encounter procedure FELICIANO CRENSHAWJORDYN PICKLER HELPER-C Work Phone: [facility]; [facility] [employer] [facility] Start: 05-30-2022 End: 05-30-2022 Periodic preventive med est patient 40-64yrs FELICIANO MARJ PICKLER HELPER-C Work Phone: [facility] [employer] Start: 04-11-2022 End: 04-11-2022 Office outpatient visit 15 minutes FELICIANO MARJ PICKLER HELPER-C Work Phone: [facility] [employer] Start: 02-28-2022 End: 02-28-2022 Office outpatient visit 15 minutes FELICIANO MARJ PICKLER HELPER-C Work Phone: [facility] [employer] [facility] [employer] Start: 12-14-2021 End: 12-14-2021 Patient encounter procedure FELICIANO DAUGHERTYMEHDIER PICKLER HELPER-C Work Phone: [facility] [employer] Start: 12-12-2021 End: 12-12-2021 Office outpatient visit 15 minutes FELICIANO FLOWERCRAIGMEHDIER PICKLER HELPER-C Work Phone: [facility] [employer] [facility] [employer] Start: 04-13-2021 End: 04-13-2021 Office outpatient visit 15 minutes FELICIANO MARJ PICKLER HELPER-C Work Phone: [facility] [employer] Start: 08-17-2019 End: 08-17-2019 Historical Summary FELICIANO CRENSHAWCARIGJENNIFER PICKLER HELPER-C Work Phone: [facility] [employer] Start: 08-20-2018 End: 08-20-2018 Lab Only FELICIANO HANDLEYER PICKLER HELPER-C Work Phone: [facility] [employer] Start: 09-23-2017 End: 09-30-2017 Office outpatient visit 15 minutes FELICIANO MCMAHAN PICKLER HELPER-C Work Phone: [facility] [employer] Start: 08-29-2017 End: 08-29-2017 Results Review FELICIANO MCMAHAN PICKLER HELPER-C Work Phone: [facility] Start: 08-29-2017 End: 08-29-2017 Lab Only FELICIANO MCMAHAN PICKLER HELPER-C Work Phone: [facility] [employer] [facility] Start: 12-30-2014 End: 12-30-2014 Results Review FELICIANO MCMAHAN PICKLER HELPER-C Work Phone: [facility] Start: 12-30-2014 End: 12-30-2014 Historical Summary FELICIANO MCMAHAN PICKLER HELPER-C Work Phone: [facility] [employer] Start: 10-23-2013 End: 10-23-2013 Patient encounter procedure FELICIANO MCMAHAN PICKLER HELPER-C Work Phone: [facility] [employer] [facility] [employer] Start: 08-30-2013 End: 08-30-2013 Nutrition therapy FELICIANO MCMAHAN PICKLER HELPER-C Work Phone: [facility] [employer] Start: 08-28-2013 End: 08-28-2013 Lab Only FELICIANO MCMAHAN PICKLER HELPER-C Work Phone: [facility] [employer] Start: 08-20-2013 End: 08-20-2013 Historical Summary FELICIANO MCMAHAN PICKLER HELPER-C Work Phone: [facility] [employer] Start: 08-20-2013 End: 08-20-2013 Patient encounter procedure FELICIANO MCMAHAN PICKLER HELPER-C Work Phone: [facility] [employer] Start: 09-05-2012 End: 09-05-2012 Patient encounter procedure FELICIANO MCMAHAN PICKLER HELPER-C [facility] Start: 10-24-2010 End: 10-24-2010 Patient encounter procedure FELICIANO MCMAHAN PICKLER HELPER-C [facility] Patient encounter procedure FELICIANO MCMAHAN PICKLER HELPER-C Work Phone: [facility]; [facility] Procedures Date Procedure Procedure Detail Performing Clinician Start: 09-19-2023 End: 09-19-2023 Dischrg meds reconciled w/current med list ERLINDA HALL MD Work Phone: Start: 07-09-2023 End: 07-09-2023 Dischrg meds reconciled w/current med list FELICIANO MCMAHAN PICKLER HELPER-C Work Phone: Start: 07-09-2023 End: 07-09-2023 No Known Past Surgical History FELICIANO MCMAHAN PICKLER HELPER-C Work Phone: Start: 07-03-2023 End: 07-03-2023 Dup-scan xtr veins unilateral/limited study MARNI HUDDLESTON PICKLER HELPER-BC Work Phone: Plan of Treatment Date Care Activity Detail Author Start: 05-30-2022 Hemoglobin glycosyla selvin a1c HGB A1C (53883) Start: 30-May-2022 11:55 Request [facility] [employer] [facility] [employer]; [facility] [employer] [facility] Start: 04-13-2021 Patient Education [facility] [facility]; [facility] Start: 10-23-2013 Patient Education BRONCHITIS, ACUTE Indication: BRONCHITIS, ACUTE Start: 23-Oct-2013 Instruction Type: Patient Education [employer] [facility] Immunizations Immunization Date Immunization Notes Care Provider Dick martin 06-04-2023 influenza virus vaccine, unspecified formulation FELICIANO MCMAHAN PICKLER HELPER-C Work Phone: [facility]; [facility] Payers Date Payer Category Payer Unknown [id number] 1975 Unknown [id number] 1975 Unknown [id number] Private Health Insurance [id number] Unknown [facility] Social History Date Type Detail Facility Alcohol Use: Alcohol Use: ; N o Alcohol Use. [facility]; [facility] Current Work/Study Status: Bernarda eckert Work/Study Status: ; Full-time. [facility]; [facility] Most Recent Primary Occupation Most Recent Primary Occupation [facility]; [facility] Tobacco use: Tobacco use: ; N ever smoker. [facility] [employer] [facility]; [facility]. Female [facility] [employer] [facility] [employer] [facility] Work Phone: Full-time [facility] [employer] [facility]; [facility] Work Phone: Never smoked tobacco [facility]; [facility] [employer] [facility] Work Phone: Summary Purpose Family History Father Status:Active Comments:In good health. Born 1943 DM; mini stroke in 70s. Mother Status:Active Comments:In good health. Born 1951 HTN; back issues Sister (s) Status:Active Comments:2. In g ood health. Father Status:Active Comments:In good health. Born 1944 DM; mini stroke in 70s. Mother Status:Active Comments:In good health. Born 1951 HTN; back issues Sister (s) Status:Active Comments:2. In g ood health. Father Status:Active Comments:In good health. Born 194 DM; mini stroke in 70s. Mother Status:Active Comments:In good health. Born 1951 HTN; back issues Sister (s) Status:Active Comments:2. In g ood health. Father Status:Active Comments:In good health. Born 1944 DM; mini stroke in 70s. Mother Status:Active Comments:In good health. Born 195 HTN; back issues Sister (s) Status:Active Comments:2. In g ood health. Advance Directives No Advanced Directives Records FoundNo Advanced Directives Records Found Additional Source Comments INFORMATION SOURCE (unrecogn ized section and content) DATE CREATED AUTHOR AUTHOR'S TONYA ATFARTUN 06/20/2023 [facility] FOR RECORDS PERTAINING TO PATIENTS WHO ARE [...] BE BASED ON THE PRIMARY CLINICAL RECORDS. [employer] provides no warranty or guarantee of the accuracy or completeness of information in this document.
== END | disposition home or self-care (01) ==
PROVIDERS: Referring Provider Physician Assistant; Visit Provider Physician Assistant
DX: I82.409 Acute embolism and thrombosis of unspecified deep veins of unspecified lower extremity (principal)
CPT/HCPCS: 36415; 85018

== ENCOUNTER → 2023-11-27 | Outpatient (CLI) | payer OTHER, SELFPAY ==
--- NOTE | 2023-11-27 18:08 | US_ITS ---
STUDY: ULTRASOUND TRANSVAGINAL CLINICAL: Female, 48 years old. AUB TECHNIQUE: Transvaginal COMPARISON: None. FINDINGS: Normal uterine size measuring 8.6 x 6 x 4.8 cm in maximal craniocaudal dimension. There are 4 fibroids measuring 2 x 1.4 x 1 cm, 1.1 x 1.1 x 1.1 cm, 1.2 x 1 x 0.9 cm and 1.3 x 1.5 x 1.3 cm Normal endometrial thickness measuring 5 mm. There are no endometrial masses, and there is no fluid in the endometrial cavity. Normal uterine cervix. Normal right ovary, measuring 5.9 x 5.3 x 4.6 cm. There is a cyst measuring 4.6 x 4.3 x 3.8 cm. Normal left ovary, measuring 2.8 x 1.9 x 1.6 cm cm. There are multiple follicles without a dominant cyst. There is no free fluid in the pelvis. US/Transvaginal Non- IMPRESSION: Multiple small intrauterine fibroids. Incidental finding of right ovarian cyst Electronically Signed: Kevin Hastings MD at 19:35 EDT ,
== END | disposition home or self-care (01) ==
LOC: RAD 18:01
PROVIDERS: PCP Nurse Practitioner Family; Visit Provider Obstetrics & Gynecology
DX: N93.9 Abnormal uterine and vaginal bleeding, unspecified (principal)
CPT/HCPCS: 76830

== ENCOUNTER → 2023-11-27 | Outpatient (CLI) | payer OTHER, SELFPAY ==
[2023-11-27 18:06] LABS: Absolute Lymphocyte Count 2.05 X10^3/uL (0.83-4.51); Absolute Neutrophil Count 3.8 X10^3/uL (2.0-7.7); Basophil# 0.07 X10^3/uL; Eosinophil# 0.15 X10^3/uL; Eosinophils% 2.2 % (0-5); Hematocrit 34.8 % (37-47); Hemoglobin 10.7 g/dL (12.0-15.0); Lymphocyte # 2.05 X10^3/ul (0.83-4.51); Lymphocyte % 29.8 % (19-41); Mean Corp Hgb Conc 30.7 g/dL (32-36); Mean Corpuscular Hgb 25.7 pg (27.0-32.0); Mean Corpuscular Volume 83.5 fL (81-99); Mean Platelet Vol. 11.7 fl (6.2-12.0); Monocyte# 0.75 X10^3/uL; Monocyte% 10.9 % (0-10); NRBC Flagged by Analyzer 0 % (0-5); Neutrophil # 3.84 X10^3/uL (2.7-7.7); Neutrophil % 55.7 % (47-70); Platelet Count 310 K/mm3 (150-450); RBC Distribution Width CV 15.2 % (11.6-14.6); RBC Distribution Width SD 46.5 fl (35.1-43.9); Red Blood Count 4.17 M/mm3 (4.2-5.4); White Blood Count 6.9 K/mm3 (4.4-11.0)
== END | disposition home or self-care (01) ==
LOC: LAB 17:34
PROVIDERS: Referring Provider Obstetrics & Gynecology; Visit Provider Obstetrics & Gynecology
DX: N93.9 Abnormal uterine and vaginal bleeding, unspecified (principal)
CPT/HCPCS: 36415; 85025

== ENCOUNTER → 2023-12-01 | Outpatient (CLI) | payer OTHER, SELFPAY ==
[2023-12-05 15:08] LABS: HPV APTIMA, High Risk Negative (Negative)
== END | disposition home or self-care (01) ==
LOC: LABSPEC 17:00
PROVIDERS: PCP Nurse Practitioner Family; Referring Provider Obstetrics & Gynecology; Visit Provider Obstetrics & Gynecology
DX: Z12.4 Encounter for screening for malignant neoplasm of cervix (principal)
CPT/HCPCS: 87624; 88175; G0145

== ENCOUNTER → 2023-12-26 | Outpatient (CLI) | payer OTHER, SELFPAY ==
--- NOTE | 2023-12-26 12:53 | VDLE_ITS ---
Reason For Study: Swelling LLE RIGHT LEFT CFV is compressible, spontaneous, phasic, CFV is compressible, spontaneous, phasic, competent and demonstrates normal competent, and demonstrates normal augmentation. augmentation. Procedure FV is compressible, spontaneous, phasic, This is a venous duplex using B-mode, color competent and demonstrates normal flow and spectral Doppler. augmentation. Exam performed in department. POP V is compressible, spontaneous, phasic, A preliminary report was called and/or faxed competent and demonstrates normal to Radha Monroe. augmentation. T/P Trunk is compressible. PTV is compressible. LT PerV is compressible. SFJ is INCOMPETENT and measures 0.77cm x 0.82 cm. GSV proximal thigh measures 0.44cm x 0.43 cm. GSV at knee measures 0.32cm x 0.30 cm. GSV above knee is competent. GSV below knee is INCOMPETENT for greater than 0.5 seconds. ASV distal thigh is INCOMPETENT for greater than 0.5 seconds and measures 0.28cm x 0.30 cm. ASV proximal calf is INCOMPETENT for greater than 0.5 seconds and measures 0.25cm x 0.26 cm. SSV proximal calf is INCOMPETENT for greater than 0.5 seconds and measures 0.53cm x 0.56 cm. VL/Venous Duplex US, Unilateral Interpretation Summary Deep veins of the left lower extremity are patent and compressible segmentally. There is no evidence of left lower extremity deep vein thrombosis. The left great saphenous vein becca ears patent and compressible segmentally. Positive for reflux in the left saphenofemoral junction, great saphenous vein b elow the knee, accessory saphenous vein in thigh and calf, small saphenous vein. Ordering Physician: Radha Monroe Referring Physician: Cydney Quiroz Performed By: Sade Das, ELYSIA, RVT
== END | disposition home or self-care (01) ==
LOC: CVS 12:52
PROVIDERS: PCP Nurse Practitioner Family; Referring Provider Physician Assistant; Visit Provider Physician Assistant
DX: I82.402 Acute embolism and thrombosis of unspecified deep veins of left lower extremity (principal); I87.1 Compression of vein; I87.2 Venous insufficiency (chronic) (peripheral)
CPT/HCPCS: 93971

== ENCOUNTER → 2024-03-12 | Outpatient (CLI) | payer OTHER, SELFPAY ==
--- NOTE | 2024-03-12 08:03 | AAVD_ITS ---
Reason For Study: S/P Lt CIV Stent Inferior Vena Cava Proximal inferior vena cava measures 1.95 x 2.02 cm. in the cross-sectional axis. Proximal inferior vena cava measures 1.99 cm. in the longitudinal axis. Mid inferior vena cava measures 2.11 x 2.03 cm. in the cross-sectional axis. Mid inferior vena cava measures 1.82 cm. in the longitudinal axis. Distal inferior vena cava measures 1.66 x 1.80 cm. in the cross-sectional axis. Distal inferior vena cava measures 1.30 cm. in the longitudinal axis. The inferior vena cava has spontaneous, phasic flow throughout. Left Common Iliac Vein Left common iliac vein measures 1.19 x 1.26 cm. in the cross-sectional axis. Left common iliac vein measures 1.30 cm. in the longitudinal axis. The left common iliac vein has spontaneous, phasic flow throughout. Stent noted. Right Common Iliac Vein Right common iliac vein measures 1.03 x 1.16 cm. in the cross-sectional axis. Right common iliac vein measures 1.07 cm. in the longitudinal axis. The right common iliac vein has spontaneous, phasic flow throughout. Procedure Aorta IVC Iliac vasculature or bypass grafts 30433. The exam was diagnostic. Exam performed in department. VL/Abd Aortic/IVC Duplex scan Interpretation Summary Patent inferior vena cava and right iliac vein with normal venous flow pattern. Patent left iliac vein stent with normal venous flow pattern. Ordering Physician: Radha Monroe Referring Physician: Cydney Quiroz Performed By: Minh Hall, RVT
== END | disposition home or self-care (01) ==
PROVIDERS: PCP Nurse Practitioner Family; Referring Provider Physician Assistant; Visit Provider Physician Assistant
DX: I87.1 Compression of vein (principal); I87.2 Venous insufficiency (chronic) (peripheral)
CPT/HCPCS: 93978

== ENCOUNTER 2024-05-11 15:47 | Outpatient (CLI) | payer OTHER, SELFPAY ==
[2024-05-11 16:28] LABS: Erythrocyte Sedimentation Rate 8 mm/hr (0-30)
[2024-05-11 16:38] LABS: CRP 7.06 mg/L (0.0-3.0)
[2024-05-15 10:14] LABS: Beef <0.10 kU/L (Class 0); Chocolate <0.10 kU/L (Class 0); Codfish <0.10 kU/L (Class 0); Corn <0.10 kU/L (Class 0); Egg, Whole <0.10 kU/L (Class 0); Milk (Cow) <0.10 kU/L (Class 0); Mussels <0.10 kU/L (Class 0); Peanut <0.10 kU/L (Class 0); Pork <0.10 kU/L (Class 0); Salmon <0.10 kU/L (Class 0); Shrimp <0.10 kU/L (Class 0); Soybean <0.10 kU/L (Class 0); Tuna <0.10 kU/L (Class 0); Wheat <0.10 kU/L (Class 0)
[2024-05-17 14:08] LABS: ACCA 9 units (0-90); ALCA 24 units (0-60); AMCA 92 units (0-100); Endomysial Antibody IgA Negative (Negative); Immunoglobulin A 154 mg/dL (87-352); gASCA 42 units (0-50); t-Transglutaminase IgA <2 U/mL (0-3)
== END 2024-05-11 23:59 | disposition home or self-care (01) ==
LOC: LAB 15:48
PROVIDERS: PCP Nurse Practitioner Family; Referring Provider Student in an Organized Health Care Education/Training Program; Visit Provider Student in an Organized Health Care Education/Training Program
DX: R10.9 Unspecified abdominal pain (principal)
CPT/HCPCS: 36415; 82784; 83516; 85652; 86003; 86005; 86036; 86140; 86255; 86671

== ENCOUNTER → 2024-05-23 | Outpatient (CLI) | payer OTHER, SELFPAY ==
[2024-05-26 17:07] LABS: Pancreatic Elastase, Fecal > 800 (>200)
[2024-05-26 19:07] LABS: Calprotectin, Stool 16 ug/g (0-120)
== END | disposition home or self-care (01) ==
LOC: LAB 11:00
PROVIDERS: Student in an Organized Health Care Education/Training Program; PCP Nurse Practitioner Family; Visit Provider Internal Medicine Gastroenterology
DX: K58.9 Irritable bowel syndrome, unspecified (principal); R10.9 Unspecified abdominal pain
CPT/HCPCS: 82653; 83630; 83993

== ENCOUNTER → 2024-06-04 | Outpatient (CLI) | payer OTHER, SELFPAY ==
--- NOTE | 2024-06-04 10:17 | NM_ITS ---
CLINICAL: 49-year-old female with history of chronic nausea. SEMI-SOLID PHASE 99m Tc SULFUR COLLOID GASTRIC EMPTYING STUDY COMPARISON: None available FINDINGS: The patient was administered 1.1 mCi of 99m Tc sulfur colloid mixed with oatmeal and consumed per os. Image acquisitions in the anterior-posterior projections were obtained for 60 minutes. There is prompt visualization of the stomach. There is no gastroesophageal reflux identified. The T ? linear fit was calculated to be 37.64 minutes, (Normal: 12-56 minutes). NM/Gastric Emptying Study IMPRESSION: 1. NORMAL 99m Tc sulfur colloid semi-solid phase (oatmeal) gastric emptying imaging examination. A. There is normal and preserved semi-solid phase gastric emptying compared to normal controls. (Nils et al, J Nucl Med Tech 38: 186, 2010). Electronically Signed: Josemanuel Elizabeth DO at 12:07 EDT ,
== END | disposition home or self-care (01) ==
LOC: NM 10:15
PROVIDERS: PCP Nurse Practitioner Family; Referring Provider Student in an Organized Health Care Education/Training Program; Visit Provider Student in an Organized Health Care Education/Training Program
DX: R10.9 Unspecified abdominal pain (principal)
CPT/HCPCS: 78264; A9541

== ENCOUNTER → 2024-07-22 | Outpatient (CLI) | payer OTHER, SELFPAY ==
--- NOTE | 2024-07-22 15:24 | US_ITS ---
INDICATION: IUD placement EXAMINATION: Ultrasound US Pelvis Non OB Complete With Transvaginal Imaging TECHNIQUE: Transabdominal and transvaginal pelvic ultrasound was performed. Grayscale, spectral waveform, and color flow Doppler evaluation of the adnexa. COMPARISON: FINDINGS: UTERUS: Anteverted. The uterus measures 10.9 x 6.0 x 4.1 cm. There are several small fibroids measuring 1.7 to 2.2 cm. The endometrial stripe measures 10 mm and appears heterogeneous with mild fluid. An IUD is noted in the lower endometrial region/cervix. The endometrium is Small nabothian cysts. RIGHT OVARY: 6.0 x 4.8 x 3.9 cm. 4.5 x 4.3 x 3.7 cm cyst. There is normal arterial inflow and venous outflow present in the right ovary. LEFT OVARY: 3.1 x 2.3 x 1.8 cm. Non-enlarged, normal echogenicity. There is normal arterial inflow and venous outflow present in the left ovary. FREE FLUID: None. US/Pelvic w/ Transvaginal IMPRESSION: Low-lying IUD. Heterogeneous endometrium with fluid. Uterine fibroids. Right ovarian cyst. Electronically Signed: Seven Dumont DO at 16:35 EST Reading Location ID and State: [facility] / [place] Tel [phone], Service support ,
== END | disposition home or self-care (01) ==
LOC: US 15:20
PROVIDERS: PCP Student in an Organized Health Care Education/Training Program; Referring Provider Obstetrics & Gynecology; Visit Provider Obstetrics & Gynecology
DX: R10.9 Unspecified abdominal pain (principal)
CPT/HCPCS: 76830; 76856

== ENCOUNTER 2024-07-23 12:27 | Day surgery (SDC) | payer OTHER, SELFPAY ==
[2024-07-23] VITALS (8 sets, daily range): BP systolic 97–108; BP diastolic 66–76; PULSE 74–84; RESP 16; TEMP 36.6; O2SAT 96–98; BMI 34.9
--- NOTE | 2024-07-23 13:04 | PCM.PRE.AN2 ---
ASA Classification* ASA Classification ASA Classification: 2 Assessment & Plan Anesthesia* Anesthesia Assessment Anesthesia Assessment: Discussed sedation and/or anesthesia options, risks, benefits, and alternatives with patient/parents/legal guardian/POA. Questions invited. The patient/parents/legal guardian/POA seems to understand and agrees to proceed with anesthesia plan. Reviewed the physical assessment, medical history, allergy history and patient home medications list prior to surgery/procedure/anesthetic and documented any changes. Performed airway and anesthesia risk assessments. Anesthesia Type Anesthesia Type: MAC Anesthesia Focused Assessment* Temperature: 97.8 F Pulse Rate: 80 Blood Pressure: 108/76 Respiratory Rate: 16 Pulse Ox: 98 Airway Assessment Mouth opens: >3 cm Mallampati Score: II Focused Labs Anesthesia Preop lab: CBC WBC 6.9 K/mm3 (4.4-11.0) 11/27/23 17:38 RBC 4.17 M/mm3 (4.2-5.4) L 11/27/23 17:38 Hgb 10.7 g/dL (12.0-15.0) L 11/27/23 17:38 Hct 34.8 % (37-47) L 11/27/23 17:38 Plt Count 310 K/mm3 (150-450) 11/27/23 17:38 CHEMISTRY Potassium 4.1 mmol/L (3.5-5.1) 10/08/23 07:07 Sodium 137 mmol/L (136-145) 10/08/23 07:07 BUN 19 mg/dL (7-18) H 10/08/23 07:07 Creatinine 0.90 mg/dL (0.55-1.02) 10/08/23 07:07 Glucose 100 mg/dL (74-106) 10/08/23 07:07 COAG Pre-Assessment Diagnosis/Proposed Procedure Planned Operative Procedure(s): EGD Anesthesia History 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 When Was Last Pacemaker Check QUESTION #4 FULL TEXT: You/Your Family Experience fever (hyperthermia) with Anesthesia Last Oral Intake Last Oral intake: Last Oral Intake NPO since Meds taken in AM with sips of water? 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 manufacturing supervisor Female Yes 07/21/24 13:05 HX of Motion Sickness Yes 07/21/24 13:05 HX of N/V After Surgery No 07/21/24 13:05 Non-Smoker Yes 07/21/24 13:05 Duration of Surgery greater No 07/21/24 13:05 than 60 minutes Number of Risk Factors 3 07/21/24 13:05 PONV Score Moderate Risk 07/21/24 13:05 Height & Weight Height & Weight: Anesthesia: Height & Weight Height 5 ft 7 in 07/23/24 12:55 Weight: 101.2 kg 07/23/24 12:55 Body Mass Index (BMI) 34.9 07/23/24 12:55 Respiratory Assessment Respiratory Assessment - eyewear manufacturing supervisor: Respiratory Tract Infection Hx - eyewear manufacturing supervisor Hx Respiratory Tract Infection No 07/21/24 13:05 STOP Sleep Apnea STOP Sleep Apnea - eyewear manufacturing supervisor: STOP Sleep Apnea - eyewear manufacturing supervisor Hx Hypertension No 07/21/24 13:05 Hx Sleep Apnea No 07/21/24 13:05 CPAP BIPAP Do you snore loudly (louder No 07/21/24 13:05 than talking or can be heard Do you often feel tired/ No 07/21/24 13:05 fatigued/ sleepy during daytime? Has anyone observed you stop No 07/21/24 13:05 breathing during sleep? STOP Results Negative 07/21/24 13:05 QUESTION #5 FULL TEXT : Do you snore loudly (louder than talking or can be heard through closed doors)? 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 Specify any problems Hx of Preganancy in last 3 N/A 07/21/24 13:05 Months Nurse Filling Out Transfusion NBUCHER 07/21/24 13:05 & Questions: Date: 07/21/24 07/21/24 13:05 Time: 13:07 07/21/24 13:05 Patient unable to answer at this time (ie. confused, unrespo /Reproduction History /Reproductive History - eyewear manufacturing supervisor: /Reproductive Hx- eyewear manufacturing supervisor Hx Now Gestational Age (in weeks): EDC: Hx Hx Para Hx Section SAB No 01/23/24 09:07 PFSH Medical History Wears glasses Anemia DVT (deep venous thrombosis) Migraine headache Non-smoker Venous (peripheral) insufficiency History of echocardiogram Cardiology follow-up encounter Elevated fasting blood sugar Cutaneous abscess of abdominal wall Left leg swelling Bloating Contraceptive management Hx of deep venous thrombosis (~2022) Fatigue Intermittent chest pain Hx of edema Gastroesophageal reflux Home Medications ?Medication ?Instructions ?Recorded ?Last Taken ?Type multivitamin 1 tab PO DAILY 12/01/23 07/19/24 History aspirin 81 mg tablet,delayed 81 mg PO DAILY 01/23/24 07/19/24 History release levonorgestrel (Mirena) 1 device intrauterine ONCE 01/23/24 07/23/24 History cholecalciferol (vitamin D3) 125 125 mcg PO DAILY 04/21/24 07/19/24 History mcg (5,000 unit) capsule clopidogrel 75 mg tablet (Plavix) 75 mg PO DAILY 07/21/24 07/19/24 History cranberry 500 mg capsule 500 mg PO DAILY 07/21/24 Unknown History Allergy/AdvReac Type Severity Reaction Status Date / Time Sulfa (Sulfonamide AdvReac Mild Nausea Verified 07/21/24 13:03 Antibiotics) Family History Aunt Breast cancer Other Asthma CVA (cerebral vascular accident) Cancer Diabetes Hypertension Surgical History History of wisdom tooth extraction Social History adopted: No household members: spouse number of children: 2 current occupational status: employed current occupation: [employer] current occupational exposures/hazards: No Smoking Status: Never smoker alcohol intake: never substance use type: does not use seatbelt use: always do you feel safe at home: Yes 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
--- NOTE | 2024-07-23 13:30 | IMM_PTH ---
PATIENT: RORY PA LOC: EN U#:[id number] AGE/SX: 49/F ROOM: RE07/23/[address]: Dr. Devon David DO : 1975 BED: DIS: 07/23/2024 SPEC #: [id number] RECD: 07/26/24 09:41 STATUS: CHRISTIN REQ #: [id number] SAMANTHA: 07/23/24 13:[address]: Devon David DEPT: IMMUNOHISTOCHEMISTRY RECD BY: Zachary Morel ENTERED: 07/26/24 09:41 SP TYPE: IMMUNO OTHR DR: Suyapa See MD Tissues: Gastric mucous membrane Procedures: H Pylori (initial) PHYSICIAN & INSTITUTION [place] [id number] SPECIMEN INFORMATION: Tissue Source: Gastric body biopsy Clinical Info: Abdominal bloating, nausea, abdominal pain Specimen Number: [id number] CPT code: 46907 METHODOLOGY: Deparaffinized sections of prefer/formalin-fixed tissue or PAP/DQ stained slides are incubated with monoclonal/polyclonal antibodies/oligonucleotide probes. Localization is made via biotin free immunoperoxidase method. Appropriate controls are performed and reacted as expected. Results on target cell population are indicated in the following table: RESULTS: ANTIBODY / CLONE RESULT H Pylori (polyclonal) negative These tests were developed and their performance characteristics determined by [facility]. They may not have been cleared or approved by the U.S. Food and Drug Administration. The FDA has determined that such clearance or approval is not necessary. The above immunohistochemical/dualISH markers are ordered and reviewed by the Pathologist. INTERPRETATION: Gastric body, biopsy: Negative for Helicobacter pylori organisms. 07/27/2024
--- NOTE | 2024-07-23 13:30 | EGD_PTH ---
PATIENT: RORY PA LOC: EN U#:[id number] AGE/SX: 49/F ROOM: RE07/23/[address]: Dr. Devon David DO : 1975 BED: DIS: 07/23/2024 SPEC #: [id number] RECD: 07/23/24 16:25 STATUS: CHRISTIN ONOFRE #: [id number] SAMANTHA: 07/23/24 13:[address]: Devon David DEPT: SURGICAL PATHOLOGY RECD BY: Romelia Pires ENTERED: 07/26/24 11:06 SP TYPE: EGD BIOPSY OTHR DR: Suyapa See MD Tissues: Gastric mucous membrane Procedures: Surgery Specimen Level IV HEADER OPERATION: EGD PRE-OP DIAGNOSIS: Abdominal bloating, nausea, abdominal pain TISSUE SUBMITTED: Gastric body biopsy MICROSCOPIC DIAGNOSIS Gastric body, biopsy: Minimal chronic inflammation. See comment. Parish 07/27/2024 COMMENT The results of immunohistochemistry for Helicobacter pylori will be reported separately ([id number]). MICROSCOPIC DESCRIPTION Slides are reviewed. GROSS DESCRIPTION Received in fixative is one container labeled with the patient's name and designated Gastric body biopsy. The specimen consists of one irregular fragment of light anderson soft tissue that measures 0.7 x 0.2 x 0.1 cm. The specimen is totally submitted in one cassette. 07/26/2024 TC:3 CPT:12316
--- NOTE | 2024-07-23 13:37 | HP.PCM_ITS ---
History and Physical Date of Admission: 07/23/24 Nurse's Note: OV 9.10.24 pt reports that for about a year now she has had off and on nausea, bloating and abd pain that feels as though someone is pushing on a bruise. pt reports she has tried omeprazole and prevacid, did not have relief of symptoms with either. Pt reports that she has never had an EGD. [facility] Medical History (Updated 05/11/24 @ 15:52 by LEONIDES Correa) Elevated fasting blood sugar Cutaneous abscess of abdominal wall Left leg swelling Bloating Contraceptive management Hx of deep venous thrombosis (~2022) Fatigue Intermittent chest pain Hx of edema Gastroesophageal reflux Family History Aunt Breast cancerOther Asthma CVA (cerebral vascular accident) Cancer Diabetes Hypertension Social History adopted: No household members: spouse number of children: 2 current occupational status: employed current occupation: [employer] current occupational exposures/hazards: No Smoking Status: Never smoker alcohol intake: never substance use type: does not use seatbelt use: always do you feel safe at home: Yes 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 She has a medical hx pertinent for AUB, venous insufficiency, DVT and iliac vein stenosis s/p stent placement. About 1year ago she started to have symptoms including nausea, abdominal pain and bloating. Her PCP had her try a course of omeprazole which was not helpful to her. She does not feel she has heartburn or reflux. She currently takes famotidine but has had more relief with Pepto Bismol. She tells me she will have random days where her abdomen feel rock hard and her pants will feel tighter than the day before. She has not been able to identity any food triggers besides caffeine. She does mention a family history of IBD with her father having Crohns. She has never had EGD or colonoscopy. She denies diarrhea, constipation, or blood in her stool. ROS Const Constitutional: Positive for fatigue, headache(s) and weight change (weight gain); No fever(s) ENT ENT: Positive for headache(s); No difficulty swallowing Gastro GI: Positive for abdominal pain, bloating, excessive flatus and nausea/dyspepsia; No belching, change in bowel habits, change in stool character, coffee ground emesis, constipation, cramping, diarrhea, heartburn, difficulty swallowing, feeling full early, incontinent of stools, Vomiting blood/hematemesis, Blood in stool, loose stools, Black,tarry stools, pain with swallowing, vomiting or other Musc Musculoskeletal: Positive for back pain; No joint pain Skin Skin: Positive for dry skin; No yellowing of the eye or itchy eyes Neuro Neurology: Positive for headache(s) Psych Psychiatric: No anxiety and No depression Endo Endocrine: Positive for fatigue and weight change (weight gain) Aller/Imm Allergy/Immunologic: No itchy eyes Benji/Lymp Hematologic/Lymphatic: Positive for easy bruising; No easy bleeding Exam Const General: cooperative and comfortable Nutritional Appearance: average body habitus and well nourished HENMT Head: normal to inspection Ears: hearing grossly normal bilaterally Nose: external nose normal Face and sinus: normal facial exam Eyes General: appearance normal, both eyes and all related structures Neck Neck: normal visual inspection Chest Chest palpation & inspection: normal inspection of the chest Resp Effort & Inspection: normal respiratory effort and able to speak in complete sentences Cardio Palpation: normal PMI GI Inspection: normal to inspection Palpation: no hepatosplenomegaly Skin General: no rashes or lesions noted Neuro General: patient alert Extrem General: normal to inspection Psych Affect: normal affect Assessment and Plan Assessment and Plan (1) Abdominal bloating: (2) Nausea: Status: Acute Plan: Patient is here today for establishment with [facility] after symptoms of bloating, nausea and abdominal pain for 1 year. She was having other medical issues with a DVT so she was unable to seek care sooner for her GI problems. on interview with patient her symptoms tend to point more towards a gastric emptying issue rather than a reflux issue. She does deny having any heartburn symptoms and PPI therapy was not helpful. I recommended we start our work up with a GES to rule out a gastric emptying issue. I will also order blood work and stool tests for autoimmune conditions as she has a family history. She is agreeable to all of this. We will consider other testing with EGD in the future pending these results. -Ordered GES -Blood work and stool testing ordered -Will call patient to discuss results -Will consider EGD in the future -She will f/u in 3 months (3) Abdominal pain: Status: Acute Orders: Orders CRP Today R10.9 - Unspecified abdominal pain Erythrocyte Sed Rate Today R10.9 - Unspecified abdominal pain Celiac Disease Profile Today R10.9 - Unspecified abdominal pain IBD Expanded Profile Today R10.9 - Unspecified abdominal pain Allergen, Food Profile 14 Today R10.9 - Unspecified abdominal pain Gastric Emptying Study Today R10.9 - Unspecified abdominal pain I have examined the patient and the H&P has been reviewed. There are no clinical changes since date of exam.
--- NOTE | 2024-07-23 14:43 | PCM.POST.ANE ---
Anesthesia: Postop Eval I Current Vital Signs Temperature: 98 F Pulse Rate: 79 Blood Pressure: 99/72 Respiratory Rate: 16 Pulse Ox: 97 Oxygen Delivery Method: Room Air Assessment Airway patent: Yes Spontaneous unlabored respirations: Yes Mental status: Asleep nausea: No Vomiting: No Anesthesia Complication: No Fluid Hydration Crystalloid volume administer (ml): 40 Total IV fluid infused: 40 Progress Note Anesthesia document: Postop Eval 1 completed: Yes
--- NOTE | 2024-07-23 14:44 | OP.EGD_ITS ---
Patient Name: Alysa Nichols Procedure Date: 07/23/2024 2:15 PM Date of : 1975 Age: 49 Procedure: Upper GI endoscopy Indications: Epigastric abdominal pain Providers: Devon David DO Referring MD: Suyapa See Md Medicines: Monitored Anesthesia Care Patient Profile: This is a 49 year old female. Refer to note in patient chart for documentation of history and physical. Patient has symptoms of acute abdominal cramping, acute abdominal distention and acute left upper quadrant abdominal pain. Complications: No immediate complications. Procedure: Pre-Anesthesia Assessment: - Prior to the procedure, a History and Physical was performed, and patient medications and allergies were reviewed. The patient is competent. The risks and benefits of the procedure and the sedation options and risks were discussed with the patient. All questions were answered and informed consent was obtained. Patient identification and proposed procedure were verified by the physician in the pre-procedure area. Mental Status Examination: alert and oriented. Airway Examination: normal oropharyngeal airway and neck mobility. Respiratory Examination: clear to auscultation. CV Examination: normal. Prophylactic Antibiotics: The patient does not require prophylactic antibiotics. Prior Anticoagulants: The patient has taken no anticoagulant or antiplatelet agents except for NSAID medication. ASA Grade Assessment: II - A patient with mild systemic disease. After reviewing the risks and benefits, the patient was deemed in satisfactory condition to undergo the procedure. The anesthesia plan was to use monitored anesthesia care (MAC). Immediately prior to administration of medications, the patient was re-assessed for adequacy to receive sedatives. The heart rate, respiratory rate, oxygen saturations, blood pressure, adequacy of pulmonary ventilation, and response to care were monitored throughout the procedure. The physical status of the patient was re-assessed after the procedure. After obtaining informed consent, the endoscope was passed under direct vision. Throughout the procedure, the patient's blood pressure, pulse, and oxygen saturations were monitored continuously. The Endoscope was introduced through the mouth, and advanced to the second part of duodenum. The upper GI endoscopy was accomplished without difficulty. The patient tolerated the procedure well. Scope In: 2:25:48 PM Scope Out: 2:32:33 PM Total Procedure Duration Time 0 hours 6 minutes 45 seconds Findings: The examined esophagus was normal. Patchy mildly erythematous mucosa without bleeding was found in the gastric body. Biopsies were taken with a cold forceps for histology. Verification of patient identification for the specimen was done. Biopsies were taken with a cold forceps for Helicobacter pylori testing. Verification of patient identification for the specimen was done. Estimated blood loss was minimal. The second portion of the duodenum was normal. Impression: - Normal esophagus. - Erythematous mucosa in the gastric body. Biopsied. - Normal second portion of the duodenum. Recommendation: - Discharge patient to home. - Resume previous diet. - Continue present medications. - Await pathology results. Procedure Code(s): --- Professional --- 13117, Esophagogastroduodenoscopy, flexible, transoral; with biopsy, single or multiple CPT copyright 2021 [employer]. All rights reserved. The codes documented in this report are preliminary and upon soup person review may be revised to meet current compliance requirements. Devon David DO 07/23/2024 2:44:17 PM This report has been signed electronically. Number of Addenda: 0 Note Initiated On: 07/23/2024 2:15 PM
--- NOTE | 2024-07-23 14:45 | OP.CCLET_ITS ---
07/23/2024 Suyapa See Md Re : Upper GI endoscopy procedure for Alysa Nichols Juanita See This procedure was performed on Tuesday, July 23, 2024. My impressions and recommendations are as follows: Impressions : - Normal esophagus. - Erythematous mucosa in the gastric body. Biopsied. - Normal second portion of the duodenum. Recommendations : - Discharge patient to home. - Resume previous diet. - Continue present medications. - Await pathology results. My findings are described in the full procedure note, which is enclosed. If I can be of further assistance, please feel free to contact me at . Sincerely, Devon David, 07/23/2024 2:44:17 PM This report has been signed electronically.
--- NOTE | 2024-07-23 16:37 | PCM.POSTANE2 ---
Anesthesia Postop Eval I Sum Postop Eval Completion status Anesthesia document: Postop Eval 1 completed: Yes Anesthesia Postop Eval I Summary Anesthesia Postop Eval I Summary: Anesthesia Postop Eval I: Assessment Summary Airway patent Yes 07/23/24 14:43 [email or web address] Spontaneous unlabored Yes 07/23/24 14:43 [email or web address] respirations Mental status Asleep 07/23/24 14:43 [email or web address] nausea No 07/23/24 14:43 [email or web address] Vomiting No 07/23/24 14:43 [email or web address] Anesthesia Postop Eval I: Fluid Summary Crystalloid volume administer 40 07/23/24 14:43 [email or web address] (ml) Colloids volume administered ( ml) Blood Product volume administered (ml) Total IV fluid infused 40 07/23/24 14:43 [email or web address] Anesthesia Postop Eval I: Summary Notes Anesthesia Complication No 07/23/24 14:43 [email or web address] Anesthesia Complication Comment: Post-operative progress note Anesthesia: Postop Eval II Evaluation Mental status: Awake and Calm Pain Level: 0 nausea: No Vomiting: No Complications Anesthesia Complication: No
== END 2024-07-23 15:32 | disposition home or self-care (01) ==
LOC: EN 12:29 → AC 12:30
PROVIDERS: PCP Student in an Organized Health Care Education/Training Program; Referring Provider Student in an Organized Health Care Education/Training Program; Visit Provider Internal Medicine Gastroenterology
PROC: 0DJ08ZZ Inspection of Upper Intestinal Tract, Via Natural or Artificial Opening Endoscopic (ICD-10-PCS; CPT 43235; principal; 2024-07-23 13:25)
DX: R10.13 Epigastric pain (principal); K31.89 Other diseases of stomach and duodenum; Z79.82 Long term (current) use of aspirin; Z79.01 Long term (current) use of anticoagulants; Z86.718 Personal history of other venous thrombosis and embolism
CPT/HCPCS: 43239; 88305; 88342; A4216; J2405

== ENCOUNTER → 2024-08-02 | Outpatient (CLI) | payer OTHER, SELFPAY ==
--- NOTE | 2024-08-02 | EMB_PTH ---
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 Mild chronic endometritis. AM.mr 08/03/2024 MICROSCOPIC DESCRIPTION Slides are reviewed. GROSS DESCRIPTION Received is one container labeled with the patient's name and not further designated. The specimen consists of multiple irregular and mucoid fragments of light anderson soft tissue that in aggregate measure 2.0 x 1.0 x <0.1 cm. The specimen is totally submitted in one cassette. AM. 08/02/2024 TC:3 CPT:78571
== END | disposition home or self-care (01) ==
LOC: BWCLAB 09:34
PROVIDERS: PCP Student in an Organized Health Care Education/Training Program; Referring Provider Advanced Practice Midwife; Visit Provider Advanced Practice Midwife
DX: N93.9 Abnormal uterine and vaginal bleeding, unspecified (principal)
CPT/HCPCS: 36415; 84443; 88305

== ENCOUNTER → 2024-08-16 | Outpatient (CLI) | payer OTHER, SELFPAY ==
--- NOTE | 2024-08-16 07:31 | US_ITS ---
STUDY: ABDOMINAL ULTRASOUND - RIGHT UPPER QUADRANT REASON FOR VISIT: Female, 49 years old Abd pain -- nausea -- bloating TECHNIQUE: Ultrasound evaluation of the right upper quadrant was performed with real-time and static angulo-scale imaging. TECHNICAL QUALITY: Adequate. COMPARISON: None. FINDINGS: Liver: The liver measures 13.3 cm. There is increased echogenicity consistent with fatty infiltration. The bile ducts are within normal limits. There is hepatic color flow. The direction of portal flow is hepatopetal. There is no demonstrated mass lesion. Gallbladder: Normal distended gallbladder. The gallbladder wall measures 2.7 mm. There is a positive sonographic Fontanez''s sign. There is no pericholecystic fluid. There is a solitary echogenic gallstone within the gallbladder. This measures 1.1 cm. Common Bile Duct (C.B.D.): The common bile duct measures 4.8 mm. Pancreas: Normal size of the head, body and tail of the pancreas. There is normal echogenicity of the pancreas. There is no demonstrated pancreatic mass or cyst. Right Kidney: Normal size of the right kidney. The right kidney measures 10.6 cm x 6.4 cm x 5.7 cm. Normal renal cortex. The right cortex measures 1.4 cm. 1.5 cm x 1.3 cm x 1.2 cm nonobstructive intrarenal calculus. There is no right hydronephrosis. US/Gallbladder IMPRESSION: Fatty infiltration of the liver. Solitary gallstone. Positive sonographic Fontanez''s sign. Small right renal cyst. Electronically Signed: Charles Veliz MD at 15:15 EST ,
== END | disposition home or self-care (01) ==
LOC: US 07:31
PROVIDERS: PCP Student in an Organized Health Care Education/Training Program; Referring Provider Student in an Organized Health Care Education/Training Program; Visit Provider Student in an Organized Health Care Education/Training Program
DX: R10.9 Unspecified abdominal pain (principal)
CPT/HCPCS: 76705

== ENCOUNTER → 2024-09-24 | Outpatient (CLI) | payer OTHER, SELFPAY ==
--- NOTE | 2024-09-24 12:36 | NM_ITS ---
CLINICAL: 49-year-old female with history of abdominal pain and nausea. RADIONUCLIDE HEPATOBILIARY SCINTIGRAPHY COMPARISON: Abdominal ultrasound report 08/16/2024 FINDINGS: Following the intravenous administration of 5.4 mCi of 99m Tc Mebrofenin, hepatobiliary images reveal: 1. Relatively prompt and homogeneous radiopharmaceutical concentration is noted by a normal sized liver. No parenchymal defects are identified. 2. Gallbladder activity is identified at 60 minutes post radiopharmaceutical administration. 3. Small intestinal tract is observed at 30 minutes following tracer injection. 4. Washout of the radiopharmaceutical by the hepatic parenchyma appears qualitatively normal. Cholecystokinin (0.02 ug/kg) was administered intravenously over a 30-minute period. The post CCK gallbladder ejection fraction calculated at 20 minutes following Cholecystokinin administration was noted to be < 5 % (normal greater than 35%). There is scintigraphic evidence of post cholecystokinin duodenal-gastric reflux. AL/Hepatobilliary Img w/Pharm Int IMPRESSION: 1. ABNORMAL 99m Tc Mebrofenin hepatobiliary imaging examination with Cholecystokinin. A. A gallbladder ejection fraction calculated to be less than 35% following the administration of Cholecystokinin is consistent with the presence of functional hepatobiliary disease (gallbladder and/or sphincter of Oddi dyskinesia) and/or organic hepatobiliary disease (chronic acalculous cholecystitis and/or cystic duct syndrome) in patients with intermediate to high pretest probabilities of hepatobiliary illness. (Floridalma Waite et al, Journal of Nuclear Medicine 32:1695, 1990). B. There is scintigraphic evidence of post CCK duodenal-gastric reflux as defined above. (Luigi et al, Nucl Med Florinda Mallory Press pg. 35, 1980). Electronically Signed: Josemanuel Elizabeth DO at 18:13 EST ,
== END | disposition home or self-care (01) ==
LOC: NM 12:35
PROVIDERS: PCP Student in an Organized Health Care Education/Training Program; Referring Provider Surgery; Visit Provider Surgery
DX: K80.20 Calculus of gallbladder without cholecystitis without obstruction (principal); R10.9 Unspecified abdominal pain; R11.0 Nausea
CPT/HCPCS: 78227; A9537; J2805

== ENCOUNTER → 2024-10-01 | Outpatient (CLI) | payer OTHER, SELFPAY ==
--- NOTE | 2024-10-01 07:43 | AAVD_ITS ---
Reason For Study: S/P Lt CIV stent Inferior Vena Cava Proximal inferior vena cava measures 2.04 x 2.04 cm. in the cross-sectional axis. Proximal inferior vena cava measures 2.16 cm. in the longitudinal axis. Mid inferior vena cava measures 1.48 x 2.13 cm. in the cross-sectional axis. Mid inferior vena cava measures 1.21 cm. in the longitudinal axis. Distal inferior vena cava measures 0.97 x 2.15 cm. in the cross-sectional axis. Distal inferior vena cava measures 1.04 cm. in the longitudinal axis. The inferior vena cava has spontaneous, phasic flow throughout. Left Common Iliac Vein Left common iliac vein measures 1.14 x 1.32 cm. in the cross-sectional axis. Left common iliac vein measures 1.27 cm. in the longitudinal axis. The left common iliac vein has spontaneous, phasic flow throughout. Stent noted in the left CIV. Right Common Iliac Vein Right common iliac vein measures 1.01 x 1.46 cm. in the cross-sectional axis. Right common iliac vein measures 1.21 cm. in the longitudinal axis. The right common iliac vein has spontaneous, phasic flow throughout. Procedure Aorta IVC Iliac vasculature or bypass grafts [id number]. Exam performed in department. VL/Abd Aortic/IVC Duplex scan Interpretation Summary Inferior vena cava and right iliac vein patent with normal venous flow pattern. Left iliac vein stent patent with normal venous flow pattern. Ordering Physician: Radha Monroe Referring Physician: Suyapa See Performed By: Akosua Collins RVT
== END | disposition home or self-care (01) ==
LOC: CVS 07:43
PROVIDERS: PCP Student in an Organized Health Care Education/Training Program; Referring Provider Physician Assistant; Visit Provider Physician Assistant
DX: I87.1 Compression of vein (principal); Z48.812 Encounter for surgical aftercare following surgery on the circulatory system
CPT/HCPCS: 93978

== ENCOUNTER 2024-10-26 05:34 | Day surgery (SDC) | payer OTHER, SELFPAY ==
--- NOTE | 2024-10-15 07:53 | EKG12_ITS ---
Test Reason : PREOP Blood Pressure : */* mmHG Vent. Rate : 69 BPM Atrial Rate : 69 BPM P-R Int : 152 ms QRS Dur : 78 ms QT Int : 404 ms P-R-T Axes : 58 98 42 degrees QTcB Int : 432 ms Normal sinus rhythm Rightward axis Borderline ECG Confirmed by ESTHER KC, MATI ([id number]), editorial specialist LOTUS DAS ([id number]) on 10/15/2024 12:51:22 PM Referred By: Ivy Pollard Confirmed By: MATI SANTANA MD
[2024-10-15 08:54] LABS: Hematocrit 37.7 % (37-47); Hemoglobin 12.2 g/dL (12.0-15.0); Mean Corp Hgb Conc 32.4 g/dL (32-36); Mean Corpuscular Hgb 28.3 pg (27.0-32.0); Mean Corpuscular Volume 87.5 fL (81-99); Mean Platelet Vol. 11.3 fl (6.2-12.0); Platelet Count 272 K/mm3 (150-450); RBC Distribution Width SD 45.1 fl (35.1-43.9); Red Blood Count 4.31 M/mm3 (4.2-5.4); White Blood Count 5.5 K/mm3 (4.4-11.0)
[2024-10-15 09:10] LABS: Magnesium 2.3 mg/dL (1.6-2.6)
--- NOTE | 2024-10-18 11:17 | PAT.ANE_ITS ---
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 When Was Last Pacemaker Check QUESTION #4 FULL TEXT: You/Your Family Experience fever (hyperthermia) with Anesthesia Last Oral Intake Last Oral intake: Last Oral Intake NPO since Meds taken in AM with sips of water? Meds patient instructed to take am of surgery PONV PONV - natural history collections curator: PONV - natural history collections curator Female Yes 10/12/24 08:57 HX of Motion Sickness Yes 10/12/24 08:57 HX of N/V After Surgery No 10/12/24 08:57 Non-Smoker Yes 10/12/24 08:57 Duration of Surgery greater Yes 10/12/24 08:57 than 60 minutes Number of Risk Factors 4 10/12/24 08:57 PONV Score Severe Risk 10/12/24 08:57 Height & Weight Height & Weight: Anesthesia: Height & Weight Height 5 ft 7 in 08/02/24 08:37 Respiratory Assessment Respiratory Assessment - natural history collections curator: Respiratory Tract Infection Hx - natural history collections curator Hx Respiratory Tract Infection No 10/12/24 08:57 STOP Sleep Apnea STOP Sleep Apnea - natural history collections curator: STOP Sleep Apnea - natural history collections curator Hx Hypertension No 10/12/24 08:57 Hx Sleep Apnea No 10/12/24 08:57 CPAP BIPAP Do you snore loudly (louder Yes 10/12/24 08:57 than talking or can be heard Do you often feel tired/ No 10/12/24 08:57 fatigued/ sleepy during daytime? Has anyone observed you stop No 10/12/24 08:57 breathing during sleep? STOP Results Negative 10/12/24 08:57 QUESTION #5 FULL TEXT : Do you snore loudly (louder than talking or can be heard through closed doors)? 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 Specify any problems Hx of Preganancy in last 3 No 10/12/24 08:57 Months Nurse Filling Out Transfusion DSCHRIBER 10/12/24 08:57 & Questions: Date: 10/12/24 10/12/24 08:57 Time: 08:58 10/12/24 08:57 Patient unable to answer at this time (ie. confused, unrespo /Reproduction History /Reproductive History - natural history collections curator: /Reproductive Hx- natural history collections curator Hx Now No 10/12/24 08:57 Gestational Age (in weeks): EDC: Hx Hx Para Hx Section SAB No 10/12/24 08:57 PFSH Medical History (Updated 10/12/24 @ 09:03 by Lo Manzanares) Wears glasses Anemia DVT (deep venous thrombosis) Migraine headache Non-smoker Venous (peripheral) insufficiency History of echocardiogram Cardiology follow-up encounter Left leg swelling Bloating IUD (intrauterine device) in place Contraceptive management Gastroesophageal reflux Home Medications ?Medication ?Instructions ?Recorded ?Last Taken ?Type multivitamin 1 tab PO DAILY 12/01/2307/02 History aspirin 81 mg tablet,delayed 81 mg PO DAILY 01/23/24 1 09/18/23 History release levonorgestrel (Mirena) 1 device intrauterine ONCE 0 01/23/24 07/23/24 History cholecalciferol (vitamin D3) 125 2,000 unit PO DAILY 1 10/12/23 Unknown History mcg (5,000 unit) capsule pantoprazole 40 mg tablet,delayed 40 mg PO QDAY #60 ta bs 08/11/24 Unknown Rx release Allergy/AdvReac Type Severity Reaction Status Date / Time Sulfa (Sulfonamide AdvReac Mild Nausea Verified 10/12/24 08:53 Antibiotics) Family History Aunt Breast cancer Other Asthma CVA (cerebral vascular accident) Cancer Diabetes Hypertension Surgical History (Updated 10/12/24 @ 09:03 by Lo Manzanares) History of esophagogastroduodenoscopy (EGD) S/P insertion of iliac artery stent History of wisdom tooth extraction Social History adopted: No household members: spouse number of children: 2 current occupational status: employed current occupation: [employer] current occupational exposures/hazards: No Smoking Status: Never smoker alcohol intake: never substance use type: does not use seatbelt use: always do you feel safe at home: Yes 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
[2024-10-26] VITALS (13 sets, daily range): BP systolic 106–135; BP diastolic 66–80; PULSE 70–99; RESP 12–21; TEMP 36.3–37.2; O2SAT 92–99; BMI 34.2
[2024-10-26 06:09] LABS: Internal QC Validated? YES +Cl - CLEAR BKGD; Pregnancy, Urine Negative Negative
[2024-10-26] MEDS: Magnesium 1 GM over 15 mins IV (06:17)
[2024-10-26] MEDS: Lactated Ringers 1,000 ML 40 ML IV (06:17)
[2024-10-26] MEDS: Celecoxib 200 MG Capsule 400 MG PO (06:35)
[2024-10-26] MEDS: Gabapentin 600 MG Tablet PO (06:35)
[2024-10-26] MEDS: Acetaminophen 500 MG Tablet 1000 MG PO (06:35)
[2024-10-26] MEDS: Scopolamine 1mg/72hr Patch 1 PATCH TD (06:36)
[2024-10-26] MEDS: Phenazopyridine 95 MG Tablet 190 MG PO (06:36)
--- NOTE | 2024-10-26 06:43 | PRE.ANES_ITS ---
ASA Classification* ASA Classification ASA Classification: 2 Assessment & Plan Anesthesia* Anesthesia Assessment Anesthesia Assessment: Discussed sedation and/or anesthesia options, risks, benefits, and alternatives with patient/parents/legal guardian/POA. Questions invited. The patient/parents/legal guardian/POA seems to understand and agrees to proceed with anesthesia plan. Reviewed the physical assessment, medical history, allergy history and patient home medications list prior to surgery/procedure/anesthetic and documented any changes. Performed airway and anesthesia risk assessments. Anesthesia Type Anesthesia Type: General History Source History Obtained from:: Patient and Chart Anesthesia Focused Assessment* Temperature: 98.0 F Pulse Rate: 74 Blood Pressure: 110/68 Respiratory Rate: 16 Pulse Ox: 99 Oxygen Delivery Method: Room Air Airway Assessment Mouth opens: >3 cm Mallampati Score: IV Teeth Condition: Caps/Crowns (Patient has several crowns. And 1 implant. They are all tight.) Neck Range of motion (ROM): Full ROM Focused Labs Anesthesia Preop lab: CBC WBC 5.5 K/mm3 (4.4-11.0) 10/15/24 08:11 10/15/24 RBC 4.31 M/mm3 (4.2-5.4) 10/15/24 08:11 10/15/24 Hgb 12.2 g/dL (12.0-15.0) 10/15/24 08:11 10/15/24 Hct 37.7 % (37-47) 10/15/24 08:11 10/15/24 Plt Count 272 K/mm3 (150-450) 10/15/24 08:11 10/15/24 CHEMISTRY Potassium 4.1 mmol/L (3.5-5.1) 10/08/23 07:07 10/08/23 Sodium 137 mmol/L (136-145) 10/08/23 07:07 10/08/23 Magnesium 2.3 mg/dL (1.6-2.6) 10/15/24 08:10 10/15/24 BUN 19 mg/dL (7-18) H 10/08/23 07:07 10/08/23 Creatinine 0.90 mg/dL (0.55-1.02) 10/08/23 07:07 10/08/23 Glucose 100 mg/dL (74-106) 10/08/23 07:07 10/08/23 TSH 1.510 uIU/mL (0.358-3.740) 08/02/24 09:34 1210/25 COAG Urine Test Negative Negative 10/26/24 05:45 10/26/24 Pre-Assessment Diagnosis/Proposed Procedure Planned Operative Procedure(s): TOTAL ROBOTIC HYSTERECTOMY BSO CYSTO IUD REMOVAL PER DR BAL ESPINOZA WITH GRAMS PER DR FOWLER Anesthesia History Anesthesia History - technical solutions director: Anesthesia History - technical solutions director Hx Hospitalization No 10/12/24 08:57 Any Problems With Anesthesia No 10/12/24 08:57 Cholinesterase deficiency No 10/12/24 08:57 You/Your Family Experience No 10/12/24 08:57 fever (hyperthermia) with Relationship Recent Exposure to Contagious No 10/26/24 06:26 Disease Does patient have nerve No 10/12/24 08:57 stimulator Patient instructed to have device shut off --Does patient have Pacemaker No 10/26/24 06:26 or ICD? When Was Last Pacemaker Check QUESTION #4 FULL TEXT: You/Your Family Experience fever (hyperthermia) with Anesthesia Last Oral Intake Last Oral intake: Last Oral Intake NPO since 04:45 10/26/24 06:26 Meds taken in AM with sips of Yes 10/26/24 06:26 water? Meds patient instructed to take am of surgery Any additional information?: Yes NPO since: 04:45 (Patient took her preop Ensure at 4:45 AM.) Meds taken in AM with sips of water?: Yes PONV PONV - technical solutions director: PONV - technical solutions director Female Yes 10/12/24 08:57 HX of Motion Sickness Yes 10/12/24 08:57 HX of N/V After Surgery No 10/12/24 08:57 Non-Smoker Yes 10/12/24 08:57 Duration of Surgery greater Yes 10/12/24 08:57 than 60 minutes Number of Risk Factors 4 10/12/24 08:57 PONV Score Severe Risk 10/12/24 08:57 Height & Weight Height & Weight: Anesthesia: Height & Weight Height 5 ft 7 in 10/26/24 06:26 Weight: 99 kg 10/26/24 06:26 Body Mass Index (BMI) 34.2 10/26/24 06:26 Respiratory Assessment Respiratory Assessment - technical solutions director: Respiratory Tract Infection Hx - technical solutions director Hx Respiratory Tract Infection No 10/12/24 08:57 STOP Sleep Apnea STOP Sleep Apnea - technical solutions director: STOP Sleep Apnea - technical solutions director Hx Hypertension No 10/12/24 08:57 Hx Sleep Apnea No 10/12/24 08:57 CPAP BIPAP Do you snore loudly (louder Yes 10/12/24 08:57 than talking or can be heard Do you often feel tired/ No 10/12/24 08:57 fatigued/ sleepy during daytime? Has anyone observed you stop No 10/12/24 08:57 breathing during sleep? STOP Results Negative 10/12/24 08:57 QUESTION #5 FULL TEXT : Do you snore loudly (louder than talking or can be heard through closed doors)? 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 Specify any problems Hx of Preganancy in last 3 No 10/12/24 08:57 Months Nurse Filling Out Transfusion DSCHRIBER 10/12/24 08:57 & Questions: Date: 10/12/24 10/12/24 08:57 Time: 08:58 10/12/24 08:57 Patient unable to answer at this time (ie. confused, unrespo /Reproduction History /Reproductive History - technical solutions director: /Reproductive Hx- technical solutions director Hx Now No 10/12/24 08:57 Gestational Age (in weeks): EDC: Hx Hx Para Hx Section SAB No 10/12/24 08:57 Active Medications Active Medications: Current Medications Generic Name Dose Route Start Last Admin Trade Name Freq PRN Reason Stop Dose Admin Acetaminophen 1,000 mg 10/26/24 07:30 10/26/24 06:35 Acetaminophen 500 Mg Tablet PO 10/26/24 07:31 1,000 mg PREOP ONE Administration Celecoxib 400 mg 10/26/24 07:30 10/26/24 06:35 Celecoxib 200 Mg Capsule PO 10/26/24 07:31 400 mg X1 ONE Administration Gabapentin 600 mg 10/26/24 07:30 10/26/24 06:35 Gabapentin 600 Mg Tablet PO 10/26/24 07:31 600 mg PREOP ONE Administration Lactated Ringer's 1,000 mls @ 40 mls/hr 10/26/24 07:30 10/26/24 06:17 IV 40 mls/hr .Q25H LFORENCE Administration Cefazolin Sodium 2 gm/ N/A 20 mls @ 400 mls/hr 10/26/24 07:30 IV 10/26/24 07:32 PREOP ONE Lactated Ringer's 1,000 mls @ 70 mls/hr 10/26/24 07:30 IV .[id number] FLORENCE Magnesium Sulfate 1 gm/ 102 mls @ 408 mls/hr 10/26/24 07:30 10/26/24 06:17 Dextrose IV 10/26/24 07:44 408 mls/hr X1 ONE Administration Indocyanine Green 3.75 mg/ N/A 1.5 mls @ 999 mls/hr 10/26/24 07:30 IV 10/26/24 07:31 PREOP ONE Insulin Human Lispro 0 unit 10/26/24 07:30 Insulin Lispro 100 Unit/Ml Insuln.Pen SC 10/26/24 18:00 Q4H PRN PRN BG >/= 180, SEE PROTOCOL Protocol Ondansetron HCl 4 mg 10/26/24 07:30 Ondansetron 4 Mg/2 Ml Vial IV 10/26/24 07:31 X1 ONE Phenazopyridine HCl 190 mg 10/26/24 07:30 10/26/24 06:36 Phenazopyridine 95 Mg Tablet PO 10/26/24 07:31 190 mg X1 ONE Administration Scopolamine HBr 1 patch 10/26/24 07:30 10/26/24 06:36 Scopolamine 1mg/72hr Patch TD 10/26/24 07:31 1 patch X1 ONE Administration PFSH Medical History Wears glasses Anemia DVT (deep venous thrombosis) Migraine headache Non-smoker Venous (peripheral) insufficiency History of echocardiogram Cardiology follow-up encounter Left leg swelling Bloating IUD (intrauterine device) in place Contraceptive management Gastroesophageal reflux Home Medications ?Medication ?Instructions ?Recorded ?Last Taken ?Type multivitamin 1 tab PO DAILY 12/01/2310/03 History aspirin 81 mg tablet,delayed 81 mg PO DAILY 01/23/24 0 10/19/24 History release levonorgestrel (Mirena) 1 device intrauterine ONCE 0 01/23/24 07/23/24 History cholecalciferol (vitamin D3) 125 2,000 unit PO DAILY 1 10/12/23 10/25/24 History mcg (5,000 unit) capsule pantoprazole 40 mg tablet,delayed 40 mg PO QDAY #60 ta bs 08/11/24 10/26/24 Rx release cyanocobalamin (vitamin B-12) 500 500 mcg PO QDAY 10/0310/25/24 History mcg tablet (Vitamin B-12) dicyclomine 10 mg capsule 10 mg PO ONCE PRN 10/22/24 U nknown History Allergy/AdvReac Type Severity Reaction Status Date / Time Sulfa (Sulfonamide AdvReac Mild Nausea Verified 10/26/24 06:14 Antibiotics) Family History Aunt Breast cancer Other Asthma CVA (cerebral vascular accident) Cancer Diabetes Hypertension Surgical History History of esophagogastroduodenoscopy (EGD) S/P insertion of iliac artery stent History of wisdom tooth extraction Social History adopted: No household members: spouse number of children: 2 current occupational status: employed current occupation: [employer] current occupational exposures/hazards: No Smoking Status: Never smoker alcohol intake: never substance use type: does not use seatbelt use: always do you feel safe at home: Yes 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
[2024-10-26 06:48] LABS: Bedside Glucose 111 mg/dL (74-106)
[2024-10-26] MEDS: INDOCYANINE GREEN 3.75 MG in Syringe 1.5 ML 999 MG IV (07:13)
--- NOTE | 2024-10-26 07:22 | PCM.HP.BLA ---
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 Is patient in pain?: No Allergies Sulfa (Sulfonamide Antibiotics) Adverse Reaction (Mild, Verified 10/04/24 15:42) Nausea Medications ?Medication ?Instructions ?Recorded ?Confirmed ?Type multivitamin 1 tab PO DAILY 12/01/23 10/04/24 History aspirin 81 mg tablet,delayed 81 mg PO DAILY 01/23/24 10/04/24 History release levonorgestrel (Mirena) 1 device intrauterine ONCE 01/23/24 10/04/24 History clopidogrel 75 mg tablet (Plavix) 75 mg PO DAILY 07/21/24 10/04/24 History cranberry 500 mg capsule 500 mg PO DAILY 07/21/24 10/04/24 History doxycycline hyclate 100 mg capsule 100 mg PO BID #14 caps 08/03/24 10/04/24 Rx cholecalciferol (vitamin D3) 125 2,000 unit PO DAILY 08/11/24 10/04/24 History mcg (5,000 unit) capsule dicyclomine 10 mg capsule 10 mg PO BID #30 caps 08/11/24 10/04/24 Rx pantoprazole 40 mg tablet,delayed 40 mg PO QDAY #60 tabs 08/11/24 10/04/24 Rx release Post menopausal: No Patient : No : No PFSH Medical History IUD (intrauterine device) in place Wears glasses Anemia DVT (deep venous thrombosis) Migraine headache Non-smoker Venous (peripheral) insufficiency History of echocardiogram Cardiology follow-up encounter Elevated fasting blood sugar Cutaneous abscess of abdominal wall Left leg swelling Bloating Contraceptive management Hx of deep venous thrombosis (~2022) Fatigue Intermittent chest pain Hx of edema Gastroesophageal reflux Surgical History S/P insertion of iliac artery stent History of wisdom tooth extraction Family History Aunt Breast cancerOther Asthma CVA (cerebral vascular accident) Cancer Diabetes Hypertension Social History adopted: No household members: spouse number of children: 2 current occupational status: employed current occupation: [employer] current occupational exposures/hazards: No Smoking Status: Never smoker alcohol intake: never substance use type: does not use seatbelt use: always do you feel safe at home: Yes 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 She tried and IUD and failed. The iud became misplaced in the cervix and was unable to be safely removed in the office. EMB was performed and noted to be benign. ultrasound showed the following: FINDINGS: UTERUS: Anteverted. The uterus measures 10.9 x 6.0 x 4.1 cm. There are several small fibroids measuring 1.7 to 2.2 cm. The endometrial stripe measures 10 mm and appears heterogeneous with mild fluid. An IUD is noted in the lower endometrial region/cervix. The endometrium is Small nabothian cysts. RIGHT OVARY: 6.0 x 4.8 x 3.9 cm. 4.5 x 4.3 x 3.7 cm cyst. There is normal arterial inflow and venous outflow present in the right ovary. LEFT OVARY: 3.1 x 2.3 x 1.8 cm. Non-enlarged, normal echogenicity. There is normal arterial inflow and venous outflow present in the left ovary. FREE FLUID: None. US/Pelvic w/ Transvaginal IMPRESSION: Low-lying IUD. Heterogeneous endometrium with fluid. Uterine fibroids. Right ovarian cyst. The patient also is in need of a cholecystectomy and the plan is for a combo case with Dr. Hampton in general surgery for a total robotic hyst + cholecystectomy. She was told that she no longer needs to be on plavix by her vascular doc and she stopped this last week. History Past Pregnancies Del. Date Name GA/Weeks Outcome Route Bth Weight Infant Gen Labor Lgth Anesthesia Del Locatn Provider FOB Unknown Ester 1999 live - full term Unknown Liana 2002 ROS Const ROS Unobtainable: All systems reviewed & are unremarkable except as noted in H Resp Resp: Reports system reviewed and no additional complaints, except as documented; Denies cough GI GI: Reports as per HPI Psych Psych: Reports system reviewed and no additional complaints, except as documented Exam Const General: cooperative, healthy appearing, comfortable and no acute distress Resp Effort & Inspection: normal respiratory effort Skin General: no rashes or lesions noted Psych Appearance: grossly normal Speech and Movement: speech and movement normal Coding Level of Care Code Off vis,est,level 4 Diagnoses Cholelithiasis K80.20 Attempted IUD removal, unsuccessful Z53.8; Z97.5 Abnormal uterine bleeding (AUB) N93.9 Acute deep vein thrombosis (DVT) of femoral vein of left lower extremity I82.412 DVT location: lower extremity Affected thrombotic vein of extremity: femoral Laterality: left Iliac vein stenosis, 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 Ultrasound was done at [place] on 07/03/23. (5) Iliac vein stenosis, left: Status: Acute Plan After discussing the patient's diagnosis and treatment plan options, patient wishes to proceed with surgical management. I have discussed with the patient the risks, benefits, and alternatives of the procedure which include but are not limited to risks of anesthesia, bleeding, infection, possible damage to bowel, bladder, or surrounding vasculature which could lead to additional surgery to evaluate any complications. Patient agrees to procedure and wishes to proceed. ACOG/uptodate references given for additional information regarding procedure. plan for total robotic hysterectomy, bs, cyst + cholecystectomy with Dr. Hampton.
--- NOTE | 2024-10-26 07:24 | PCM.DC ---
Discharge Instructions Diet Discharge Diet: No restrictions DC O2, CPAP, BIPAP needs Home O2 Discharge instructions: No Dressing / Incision Discharge Activity: May Shower May resume sexual activity in: 8 weeks Weight Bearing Status: Full weight bearing Lifting Restrictions: 10 pounds for 2 weeks Dressing / Incision Call your doctor if your incision/area has: Continuous Slow Oozing, Sudden Increased Bleeding, Increased Pain/ Swelling, Increased Redness and Foul Smelling Discharge Call your doctor if you observe: Fever of 101 or Higher, Using more than 1 pad per hour, Shortness of breath, Chest pain and Uncontrolled pain Suture Line Care: Avoid Pulling/Pushing and Avoid Pinching/Bending Remove Dressing in: 1 week (if present) Cleanse incision/area with: Soap & Water and Keep Dressing Clean & Dry Follow Up Care Please Follow Up With: Ivy Pollard DO When: Call to make an appointment with your doctor for a postop visit in 2 and 6 weeks Test Results: Test results from this visit will be discussed in further detail at your follow-up appointment, if applicable. Discharge Plan Admission Primary Reason for Your Visit: hysterectomy and cholecystectomy Attending Provider: Ivy Pollard Primary Care Provider: Suyapa See Consulting Providers: Minor Hampton Instructions Print Language: Vietnamese Discharge Orders/Prescriptions Prescriptions: New ibuprofen 800 mg tablet 800 mg PO Q8H PRN (Reason: pain) Qty: 30 0RF ondansetron HCl 4 mg tablet 4 mg PO Q6H PRN (Reason: nausea and vomiting) Qty: 20 0RF oxycodone-acetaminophen [Percocet] 5-325 mg tablet 1 tab PO Q4H PRN (Reason: pain) 7 Days Qty: 30 0RF Continued aspirin 81 mg tablet,delayed release (DR/EC) 81 mg PO DAILY cholecalciferol (vitamin D3) 125 mcg (5,000 unit) capsule 2,000 unit PO DAILY cyanocobalamin (vitamin B-12) [Vitamin B-12] 500 mcg tablet 500 mcg PO QDAY No Action multivitamin Tablet 1 tab PO DAILY Mirena 21 mcg/24 hr (8 yrs) 52 mg intrauterine device 1 device intrauterine ONCE Rx Instructions: as a single dose pantoprazole 40 mg tablet,delayed release (DR/EC) 40 mg PO QDAY Qty: 60 2RF Other Ambulatory Orders: ,Urine (Routine) Timeframe: 20241026 Facility: [facility] - Location: Laboratory Ordered By: Dr. vIy Pollard Referrals / Follow Up: Suyapa See MD [Primary Care Provider] - Disposition Disposition (needs filled in before D/C Order can be placed): Home, Self Care
--- NOTE | 2024-10-26 07:30 | HYST_PTH ---
PATIENT: RORY PA LOC: [facility] [place] U#:[id number] AGE/SX: 49/F ROOM: RE10/26/[address]: Dr. Ivy Pollard DO : 1975 BED: DIS: 10/26/2024 SPEC #: [id number] RECD: 10/26/24 11:15 STATUS: CHRISTIN ADHIKARI #: [id number] SAMANTHA: 10/26/24 07:[address]: Ivy Pollard DEPT: SURGICAL PATHOLOGY RECD BY: Romelia Pires ENTERED: 10/26/24 11:54 SP TYPE: HYSTERECT OTHR DR: MD Suyapa Hammer MD Tissues: A - Uterus, NOS B - Gallbladder, NOS Procedures: Surgery Specimen Level III Surgery Specimen Level V HEADER OPERATION: Total laparoscopic robotic hysterectomy with bilateral salpingectomy PRE-OP DIAGNOSIS: Menorrhagia, retained IUD, fibroid, uterus TISSUE SUBMITTED: A- Utuers, cervix, bilateral fallopian tubes, B- Gallbladder and contents MICROSCOPIC DIAGNOSIS A. Uterus, cervix, and bilateral fallopian tubes, hysterectomy, bilateral salpingectomy: Cervix - Chronic cystic cervicitis. Endometrium - Consistent with exogenous hormone effect with focal area of mildly disordered proliferative endometrium. Myometrium - Intramural and subserosal leiomyomas (largest measuring 2cm in diameter). - Adenomyosis. Bilateral fallopian tubes- no pathologic diagnosis. Bilateral paratubal cysts. B. Gallbladder, cholecystectomy: Chronic cholecystitis, cholelithiasis and cholesterolosis. . 10/27/2024 MICROSCOPIC DESCRIPTION Slides are reviewed. GROSS DESCRIPTION A. Received in fixative is one container labeled with the patient's name and designated uterus, cervix, bilateral fallopian tubes. The specimen consists of a hysterectomy specimen consisting of uterus with cervix and attached bilateral fallopian tubes. The uterus with cervix weighs 162 gm and measures 11.5 x 8 x 6 cm. The serosal surface is anderson glistening. A subserosal nodule is noted. The ectocervical mucosa is unremarkable. The external os is circular in contour and covered with hemorrhagic mucoid material. The endocervical canal measures 4 cm in length and the endocervical mucosa is anderson glistening and unremarkable. The triangular endometrial cavity measures 4.5 cm in length and 3 cm in width. The endometrium is anderson, glistening without any mass lesions and measures 0.2 cm in thickness. Sections of the uterine wall reveal multiple intramural and one subserosal nodular mass. The largest nodular mass is subserosal in location and measures 2cm in diameter. Sections of these masses reveal anderson whorled cut surfaces without areas of hemorrhage, necrosis or cystic degeneration. Uterine wall measures up to 3cm in thickness. Right fallopian tube measures 8.5cm in length and 0.6cm in diameter. Fimbrial end is identified. Two paratubal cysts are noted measuring 0.7 and 1.5cm in greatest dimensions. Section of fallopian tube reveal unremarkable cut surfaces. Left fallopian tube is similar in appearance as to right fallopian tube and measures 8cm in length and 0.7cm in diameter. A paratubal cyst is noted measuring 1.5cm in greatest dimension. Paratubal cysts are filled with clear fluid in adjacent to the right and left fallopian tubes. Broker Associate sections are submitted in ten cassettes as follows: 1 - anterior cervix, 2 - posterior cervix, 3 & 4 - anterior uterine wall, 5 & 6 - posterior uterine wall, 7&8- nodular masses (cassette 7 contains the largest nodular mass and smaller nodular mass, 8-second largest nodular mass and smaller nodular masses), 9- right fallopian tube and paratubal cysts, 10- left fallopian tube and paratubal cyst. CPT: 80070 B. Received is one container labeled with the patient's name and designated gallbladder and contents. The specimen consists of a gallbladder measuring 8.5 cm in length and up to 4.5 cm in diameter. The external surface is pink-anderson, smooth and glistening for the most part. Focally it is granular, hemorrhagic and contains cautery artifact. The gallbladder contains green-yellow hemorrhagic bile and one black ovoid to irregular stone measuring 1 x 0.7 x 0.7 cm. The mucosa is bile-stained and without any mass lesions. The gallbladder wall measures up to 0.1 cm in thickness. One small yellow polyp is noted measuring 0.2cm in greatest dimension and may represent cholesterolosis. Broker Associate sections from the gallbladder, cystic duct and entire polyp are submitted in one cassette. / BECKY: 10/26/2024 TC:1 CPT: 29006,72262
[2024-10-26] MEDS: Cefazolin 2 GM in Syringe 10 ML IV (07:45)
[2024-10-26] MEDS: Bupivacaine 0.25% 30 ML Vial (08:10)
--- NOTE | 2024-10-26 09:26 | OP.PCM_ITS ---
Problems Associated Problem List Diagnoses (1) Cholelithiasis: (2) Attempted IUD removal, unsuccessful: (3) Abnormal uterine bleeding (AUB): Multi Select Codes Urinary/Genital Urinary/Genital CPT Codes: 44004 Cystoscopy and 92026 TLH+BS/O <250gr uterus Operative Report (Standard) Operative Information Date of Procedure: 10/26/24 Pre-Operative Diagnosis: menorrhagia, retained IUD, fibroid uterus, cholecystitis Post-Operative Diagnosis: menorrhagia, retained IUD, fibroid uterus , cholecystitis Surgery/Procedure Performed: total robotic hysterectomy, bilateral salpingectomy, cystoscopy, cholecystectomy (dictated separately) public works supervisor: Yes Slot Floorperson: Wolfgang Comer Tasks completed by waiter/waitress first class: Closing, Insert Trochanter and Retracting Additional medical assistant cardiology?: No Type of Anesthesia: General RN Documented Start/Stop Times: Operation Date: 10/26/24 10:30 <No data on this case meets the specified criteria> Procedure Start Time: 07:59 Procedure Stop Time: 09:15 Select all DRAINS/GRAFTS/IMPLANTS that apply: None Estimated Blood Loss: 100cc Specimen collected: Yes Description of specimen(s) removed: uterus, cervix, fallopian tubes Description of surgery: Findings: 10 cm size uterus with fibroid, normal appearing ovaries (with exception of simple appearing cysts on each ovary) and tubes. On exploration of the abdominal cavity the uterus, adnexa, bowel, and liver were found to be normal. Cystoscopy showed no evidence of leaking at approximately 250 cc of normal saline, positive ureteral orifices and jet flow are seen and no suture material was appreciated in the bladder. Specimens removed: Uterus and cervix Reason for surgery: This is a 49-year-old G3, P3 who presented to my office with history of heavy periods and ultrasound finding of fibroid. She tried an IUD without success. the planned procedure is for a robotic hysterectomy the risks benefits and alternatives were discussed with the patient the patient had a clear understanding of the procedure and a consent form was signed. Procedure: The patient was placed in the dorsal low lithotomy position and prepped and draped in the normal sterile fashion both abdominally and in the perineum. Her legs were placed in stirrups a Marroquin catheter was inserted into the urethra without difficulty. A weighted speculum was placed in the vagina and a single- tooth tenaculum was used to grasp the anterior lip of the cervix. An [employer] uterine manipulator was inserted through the cervix without complication. It was then tied into place at the 2 and 10:00 locations on the cervix. Gloves were changed and attention was turned towards the abdomen. Approximately 23 cm above the pubic symphysis in the midline, and after Marcaine injection, a 8 mm incision was made. An 8 mm trocar was inserted through the laparoscope, then ins erted into the abdomen under direct visualization using the laparoscope. Good abdominal placement was noted and no complications were appreciated. An air seal device was utilized to create pneumoperitoneum. At 12 cm lateral to the midline on the left and right sides 8 mm accessory ports were placed. Next a left upper quadrant 8 mm medical assistant cardiology port site was placed. The patient was placed in steep Trendelenburg position. The robot was docked. The hysterectomy was initiated first by taking down the round ligament on each side using the vessel sealer device. The broad ligament was then and taken down using the vessel sealer device. Next the bladder flap was taken down without complication. This was done using monopolar cautery to the level of the cervical vaginal junction. After the bladder flap was created, uterine vessels were then isolated and cauterized using the vessel sealer device and EndoShears. At this point the uterine vessels were taken down further starting from the ascending branch, dissecting along the edges of the cervix to the level of the cervical vaginal junction with hemostasis appreciated. The cervical vaginal junction was then using monopolar cautery in a circumferential pattern across the superior aspect of the cervix. The specimen was delivered through the vagina and sent to pathology. The remaining vaginal cuff was then closed using a V lock suture. This was performed in a running technique. Excellent hemostasis was obtained and good closure was noted. Irrigation was then performed. All operative sites were noted to be hemostatic. A cystoscopy was performed with a 70 degree cystoscope through the urethra into the bladder without complication. The bladder was instilled with approximately 250 cc of normal saline. Intraoperative images were made. Ureteral orifices and jets were identified. No suture material was appreciated in the bladder. The bladder was then drained and cystoscope was removed. The abdominal cavity was again examined using the laparoscope after the robot was undocked. Next, Dr. Hampton started a cholecystectomy which will be dictated separately. Surgical Findings: fibroid uterus Complications Complications: No Admit VTE Documentation VTE Present on Admission: No VTE Mechan Device Prophylaxis: SCD's VTE Pharm Prophylaxis ordered?: No
--- NOTE | 2024-10-26 10:39 | OP.PCM_ITS ---
Operative Report (Standard) Operative Information RN Documented Start/Stop Times: Operation Date: 10/26/24 10:30 <No data on this case meets the specified criteria>
--- NOTE | 2024-10-26 10:39 | PCM.OPRPT ---
Problems Associated Problem List Diagnoses (1) Cholelithiasis: Procedures Digestive 40xxx-49xxx: 83489 Laparo cholecystectomy/graph Operative Report (Standard) Operative Information Date of Procedure: 10/26/24 Pre-Operative Diagnosis: Chronic cholecystitis/cholelithiasis Post-Operative Diagnosis: Same Surgery/Procedure Performed: Robotic cholecystectomy with ICG cholangiography aboriginal community council member: Yes Cylinder Inspector And Tester: Wolfgang Comer Tasks completed by paraprofessional education assistant: Closing and Retracting Additional assistant clinical nurse manager?: No Type of Anesthesia: General and Local RN Documented Start/Stop Times: Operation Date: 10/26/24 10:30 <No data on this case meets the specified criteria> Procedure Start Time: 09:30 Procedure Stop Time: 10:30 Select all DRAINS/GRAFTS/IMPLANTS that apply: None Estimated Blood Loss: 10 cc Specimen collected: Yes Description of specimen(s) removed: Gallbladder Description of surgery: The patient is a 49-year-old female whom I recently seen through the office with periodic right upper quadrant pain along with nausea and vomiting. She did have a solitary gallstone. On ultrasound she also had some slight gallbladder wall thickening at the time of an ER visit. Outpatient HIDA scan showed a low ejection fraction of the gallbladder. I recommended cholecystectomy. When seen in the office she stated that she was also scheduled to have a robotic hysterectomy performed and asked if the surgeries could be performed at the same time. We were happy to accommodate and so a robotic hysterectomy performed by Dr. Palomo and a robotic cholecystectomy was scheduled. Patient was brought to the operating room today following informed consent. She was placed supine on the operative table. Dr. Palomo position the patient and placed the necessary trocars for her portion of the operation. She completed the hysterectomy portion of the combined case. Once the hysterectomy was performed. The robot was undocked and redocked and a different orientation to perform the cholecystectomy. All the same trocars were utilized. The gallbladder was clearly identified. It was somewhat distended but the gallbladder wall appeared grossly normal. The gallbladder was grasped at the fundus and was reflected in a cephalad direction up and over the liver. Another grasper was then used to retract the lower aspect of the gallbladder. A hook electrocautery was used to release the peritoneum on either side of the gallbladder providing further exposure and mobility. The infundibulum was dissected out carefully again using hook electrocautery. The cystic duct and cystic artery were both clearly identified. The lower third of the gallbladder was dissected free from the cystic plate. A critical view of safety was obtained. ICG cholangiography was also used to confirm the location of the cystic duct and common bile duct. Once this was established, clips were applied to the cystic duct and cystic artery. A total of 3 clips were placed on the duct and a total of 2 clips were placed on the artery. Both structures were transected using curved scissors. Next the gallbladder was then bovied off the undersurface of the liver. There was a spillage of a small amount of bile which was later suctioned out and irrigated thoroughly. Once the gallbladder was free it was placed into a bag and brought out through one of the left sided trocars. The fascia did need to be stretched in order to get the gallbladder out through this trocar site. The trocar was replaced. The right upper quadrant is then copiously irrigated using a power dry cure worker. This suctioned clean and dry. Hemostasis was excellent. The trocars were then removed and insufflation was allowed to escape. Local anesthetic was injected earlier in the case. Patient incision was then closed with 4-0 Vicryl. Skin glue was applied as dressing. She was awakened from anesthesia and taken to recovery in good condition. A SUPERCALENDER OPERATOR was utilized as a gallery assistant. His role included instrument changes and assistance with skin closure. Surgical Findings: See operative dictation Complications Complications: No Admit VTE Documentation VTE Present on Admission: No VTE Mechan Device Prophylaxis: SCD's VTE Pharm Prophylaxis ordered?: No Reason prophylaxis not ordered: Treatment Not Indicated
[2024-10-26] MEDS: Lactated Ringers @ 70 MLS/HR 70 ML IV (10:49)
--- NOTE | 2024-10-26 11:29 | PCM.POST.ANE ---
Anesthesia: Postop Eval I Current Vital Signs Temperature: 97.3 F Pulse Rate: 87 Blood Pressure: 123/73 Respiratory Rate: 12 Pulse Ox: 98 Oxygen Delivery Method: Nasal Cannula Oxygen Flow Rate (L/min): 2 Assessment Airway patent: Yes Spontaneous unlabored respirations: Yes Mental status: Awake and Calm nausea: No Vomiting: No Anesthesia Complication: No Fluid Hydration Crystalloid volume administer (ml): 1,800 Total IV fluid infused: 1,800 Progress Note Anesthesia document: Postop Eval 1 completed: Yes
[2024-10-26] MEDS: HYDROcodone Bitartrate/Apap 5/325 Tablet PO (12:49)
--- NOTE | 2024-10-26 18:50 | POSTOPAN2_ITS ---
Anesthesia Postop Eval I Sum Postop Eval Completion status Anesthesia document: Postop Eval 1 completed: Yes Anesthesia Postop Eval I Summary Anesthesia Postop Eval I Summary: Anesthesia Postop Eval I: Assessment Summary Airway patent Yes 10/26/24 11:30 [email or web address] Spontaneous unlabored Yes 10/26/24 11:30 [email or web address] [email or web address] respirations Mental status Awake,Calm 10/26/24 11:30 [email or web address] nausea No 10/26/24 11:30 [email or web address] Vomiting No 10/26/24 11:30 [email or web address] [email or web address] Anesthesia Postop Eval I: Fluid Summary Crystalloid volume administer 1,800 10/26/24 11:30 [email or web address] [email or web address] (ml) Colloids volume administered ( ml) Blood Product volume administered (ml) Total IV fluid infused 1,800 10/26/24 11:30 [email or web address] Anesthesia Postop Eval I: Summary Notes Anesthesia Complication No 10/26/24 11:30 [email or web address] Anesthesia Complication Comment: Post-operative progress note Anesthesia: Postop Eval II Evaluation Mental status: Awake and Calm Pain Level: 1 nausea: No Vomiting: No Complications Anesthesia Complication: No
--- NOTE | 2024-10-26 18:50 | PCM.POSTANE2 ---
Anesthesia Postop Eval I Sum Postop Eval Completion status Anesthesia document: Postop Eval 1 completed: Yes Anesthesia Postop Eval I Summary Anesthesia Postop Eval I Summary: Anesthesia Postop Eval I: Assessment Summary Airway patent Yes 10/26/24 11:30 [email or web address] Spontaneous unlabored Yes 10/26/24 11:30 [email or web address] respirations Mental status Awake,Calm 10/26/24 11:30 [email or web address] nausea No 10/26/24 11:30 [email or web address] Vomiting No 10/26/24 11:30 [email or web address] Anesthesia Postop Eval I: Fluid Summary Crystalloid volume administer 1,800 10/26/24 11:30 [email or web address] (ml) Colloids volume administered ( ml) Blood Product volume administered (ml) Total IV fluid infused 1,800 10/26/24 11:30 [email or web address] Anesthesia Postop Eval I: Summary Notes Anesthesia Complication No 10/26/24 11:30 [email or web address] Anesthesia Complication Comment: Post-operative progress note Anesthesia: Postop Eval II Evaluation Mental status: Awake and Calm Pain Level: 1 nausea: No Vomiting: No Complications Anesthesia Complication: No
== END 2024-10-26 16:31 | disposition home or self-care (01) ==
LOC: SDC 05:34 → AC 05:35
PROVIDERS: Anesthesiology; Surgery; PCP Student in an Organized Health Care Education/Training Program; Referring Provider Obstetrics & Gynecology; Visit Provider Obstetrics & Gynecology
PROC: 0UT90ZZ Resection of Uterus, Open Approach (ICD-10-PCS; CPT 58571; principal; 2024-10-26 07:10)
PROC: 0FT44ZZ Resection of Gallbladder, Percutaneous Endoscopic Approach (ICD-10-PCS; CPT 47562; 2024-10-26 07:10)
DX: K80.10 Calculus of gallbladder with chronic cholecystitis without obstruction (principal); N83.8 Other noninflammatory disorders of ovary, fallopian tube and broad ligament; N80.03 Adenomyosis of the uterus; D25.1 Intramural leiomyoma of uterus; D25.2 Subserosal leiomyoma of uterus; N72 Inflammatory disease of cervix uteri; K21.9 Gastro-esophageal reflux disease without esophagitis; I87.1 Compression of vein; Z79.82 Long term (current) use of aspirin; Z79.899 Other long term (current) drug therapy; Z86.718 Personal history of other venous thrombosis and embolism
CPT/HCPCS: 58571; S2900; 47563; 00840; 36415; 81025; 82962; 83735; 85027; 86850; 86900; 86901; 88304; 88307; 93005; A4216; J2405; J3475

== ENCOUNTER → 2024-11-26 | Outpatient (CLI) | payer OTHER, SELFPAY ==
--- NOTE | 2024-11-26 13:57 | VDLE_ITS ---
Reason For Study Reason For Study: Right leg pain RIGHT LEFT GSV is normal. CIV stent noted with normal phasic venous flow noted. CFV is compressible, spontaneous, phasic, competent CFV is compressible, spontaneous, phasic, competent, and demonstrates normal augmentation. and demonstrates normal augmentation. FV is compressible, spontaneous, phasic, competent and demonstrates normal augmentation. POP V is compressible, spontaneous, phasic, competent and demonstrates normal augmentation. T/P Trunk is compressible. PTV is compressible. RT PerV is compressible. Procedure This is a venous duplex using B-mode, color flow and spectral Doppler. Exam performed in department. A preliminary report was called and/or faxed to [facility]. VL/Venous Duplex US, Unilateral Interpretation Summary Deep veins of the right lower extremity are patent and compressible segmentally . There is no evidence of right lower extremity deep vein thrombosis. The right great saphenous vein appears patent a nd compressible segmentally. Left iliac vein stent patent with normal venous flow pattern. Ordering Physician: Radha Monroe Referring Physician: Suyapa See Performed By: Akosua Collins RVT
== END | disposition home or self-care (01) ==
LOC: CVS 13:56
PROVIDERS: PCP Student in an Organized Health Care Education/Training Program; Referring Provider Physician Assistant; Visit Provider Physician Assistant
DX: I87.1 Compression of vein (principal); M79.604 Pain in right leg; Z86.718 Personal history of other venous thrombosis and embolism
CPT/HCPCS: 93971

== ENCOUNTER → 2024-12-06 | Outpatient (CLI) | payer OTHER, SELFPAY | END | disposition home or self-care (01) | PROVIDERS: PCP Student in an Organized Health Care Education/Training Program; Visit Provider Obstetrics & Gynecology | DX: N76.0 Acute vaginitis (principal) | CPT/HCPCS: 87070; 87205 ==